=== PATIENT | female | born 1955 | race Two or more races ===

== ENCOUNTER 2025-08-04 15:38 | Emergency (ER) | payer OTHER ==
[~2025-08-04] VITALS: Ht 165.1 cm; Wt 89.1 kg
[2025-08-04 15:40] VITALS: BP 125/84; PULSE 125; RESP 18; TEMP 98.7; O2SAT 95
--- NOTE | 2025-08-04 16:24 | ED.PDOC ---
Christopher. trauma (HPI) HPI Comments This patient is a morbidly obese 70-year-old female who presents to the ED for c/c of fall injury Patient's dates last night p.m. 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, Allergies Allergies: Coded Allergies: NO KNOWN ALLERGIES (Unverified , 08/04/25) Information Source: Patient Mode of Arrival: Walker Brought in by: self Severity: Moderate Timing: Days Duration: Since onset Prehospital treatment: None Location: (R) Leg Location of laceration: None Mechanism: Blunt trauma, Fall Past Medical History PAST MEDICAL HISTORY: Unknown Past Medical History (Other): Patient ambulates with a walker Surgical History: Unknown 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 Family History Family History: Reviewed,noncontributory to illness Social History Smoker: Non-Smoker Alcohol: Denies ETOH Use Drugs: Denies Drug Use Lives In: Home Constitutional: denies: chills, diaphoresis, fatigue, fever, malaise, sweats, weakness, others EENTM: denies: blurred vision, double vision, ear bleeding, ear discharge, ear drainage, ear pain, ear ringing, eye pain, eye redness, hearing loss, mouth pain, mouth swelling, nasal discharge, nose bleeding, nose congestion, nose pain, photophobia, tearing, throat pain, throat swelling, voice changes, others Respiratory: denies: cough, hemoptysis, orthopnea, SOB at rest, shortness of breath, SOB with excertion, stridor, wheezing, others Cardiovascular: denies: chest pain, dizzy spells, diaphoresis, Dyspnea on exertion, edema, irregular heart beat, left arm pain, lightheadedness, palpitations, PND, syncope, others Gastrointestinal: denies: abdomen distended, abdominal pain, blood streaked bowels, constipated, diarrhea, dysphagia, difficulty swallowing, hematemesis, melena, nausea, poor appetite, poor fluid intake, rectal bleeding, rectal pain, vomiting, others Genitourinary: denies: abnormal vagina bleeding, burning, dyspareunia, dysuria, flank pain, frequency, hematuria, incontinence, pain, , vagina discharge, urgency, others Neurological: denies: dizziness, fainting, headache, left sided numbness, left sided weakness, numbness, paresthesia, pre-existing deficit, right sided numbness, right sided weakness, seizure, speech problems, tingling, tremors, weakness, others Musculoskeletal: reports: others (Soft tissue swelling of the proximal medial right thigh); denies: back pain, gout, joint pain, joint swelling, muscle pain, muscle stiffness, neck pain Integumetry: denies: bruises, change in color, change in hair/nails, dryness, laceration, lesions, lumps, rash, wounds, others Allergic/Immunocompromised: denies: Difficulty Healing, Frequent Infections, Hives, Itching, others Hematologic/Lymphatic: denies: anemia, blood clots, easy bleeding, easy bruising, swollen glands, others Endocrine: denies: excessive hunger, excessive sweating, excessive thirst, excessive urination, flushing, intolerance to cold, intolerance to heat, unexp lained weight gain, unexplained weight loss, others Psychiatric: denies: anxiety, bipolar disorder, depression, hopeless, panic disorder, schizophrenia, sleepless, suicidal, others All Other Systems: Reviewed and Negative Physical Exam General Appearance: Mild Distress (Moderate distress due to thigh concerns. Patient states she took pain medication at home.), Obese HEENT: Normal ENT Inspection, Pharynx Normal, TMs Normal Neck: Full Range of Motion, Non-Tender, Normal, Normal Inspection Respiratory: Chest Non-Tender, Lungs Clear, No Accessory Muscle Use, No Respiratory Distress, Normal Breath Sounds Cardiovascular: No Edema, No JVD, No Murmur, No Gallop, Normal Peripheral Pulses, Regular Rate/Rhythm Breast Exam: Deferred Gastrointestinal: No Organomegaly, Non Tender, No Pulsatile Mass, Normal Bowel Sounds, Soft Genitalia: Deferred Pelvic: Deferred Rectal: Deferred Extremities: Other (4 cm moderately firm mass appreciated in the right proximal medial thigh. Tender to palpation throughout. Mild local erythema. No ecchymosis.) Neurologic: Alert Cerebellar Function: NOT DONE Reflexes: NOT DONE Skin: Dry, Normal Color, Warm Lymphatic: No Adenopathy Was a procedure done? Was a procedure done?: No Differential Diagnosis Multiple Trauma: Other (Follow up, muscle strain, neoplasm, lipoma) X-Ray, Labs, Meds, VS Vital Signs Date Time Temp Pulse Resp B/P (MAP) Pulse Ox O2 Delivery O2 Flow Rate FiO2 08/04/25 15:40 98.7 125 18 125/84 95 98.7 [place] [address] Ph: [phone] DIAGNOSTIC IMAGING Diagnostic Imaging Report : [id number] Signed PATIENT: DEISI GUZMAN ACCT: [id number] UNIT: [id number] : 1955 LOC: ER ROOM / BED: / AGE / SEX: 70 / F ADM STATUS: REG ER SERVICE 1603 ORDERING PHYSICIAN: GEORGE REED PAC PROCEDURE(s): RLEXT - RIGHT LOWER EXTREMITY ULTRASOU REASON: Proximal right medial thigh mass ORDER NUMBER(s): [id number], ACCESSION NUMBER(s): [id number] RIGHT Upper Extremity Venous Duplex Clinical History: Proximal right medial thigh mass Comparison: None Technique: Doppler evaluation of the venous system of the right thigh as well as the adjacent soft tissues including color Doppler and spectral / pulsed wave form analysis. Findings: Superficial vein is seen at the area of concern demonstrating sluggish but patent flow. Probable minimally prominent lymph node within the subcutaneous soft tissues measuring up to 4.8 cm in dimension. No discrete mass. No surrounding inflammatory changes. Impression: A prominent vessel with sluggish but preserved flow is seen within the soft tissues of the area of concern There is also a mildly prominent lymph node without cortical thickening or other suspicious imaging features. ATED BY: TONIO FERGUSON MD DICTATED DATE/TIME: 08/04/251650 SIGNED BY: TONIO FERGUSON MD SIGNED DATE/TIME: 08/04/251650 CC: X-Ray, Labs, Meds, VS Comment All studies performed the ED were evaluated by me personally. Ultrasound on the proximal medial right thigh revealed a superficial vein that demonstrates sluggish but patent flow. Minimally prominent lymph node was noted in the areas well. No discrete mass. No surrounding inflammatory changes. Time of 1ST Reevaluation: 17:22 Reevaluation 1ST: Unchanged Consultation: PCP Patient Education/Counseling: Diagnosis, Treatment Family Education/Counseling: Diagnosis, Treatment, No Family Present Departure 1 Departure Time of Disposition: 17:22 Impression: Primary Impression: Swollen lymph nodes Disposition: HOME / SELF CARE / HOMELESS Condition: Stable Additional Instructions: Advised patient utilize antibiotics as directed until completion. If symptoms continue, patient will need to follow up with the primary care provider for re-evaluation. e-Prescriptions Sulfamethoxazole W/Trimethopri (Bactrim Ds Tablet) 1 Tab Tb 1 TAB PO BID for 5 Days, #10 TAB Prov: GEORGE REED PAC 08/04/25 Discharged With: Self, Friend Critical Care Note Critical Care Time?: No Stability Stability form required: No Heart Score Heart Score: Heart Score Response (Comments) Value History N/A 0 EKG N/A 0 Age N/A 0 Risk Factors N/A 0 Troponin N/A 0 Total 0 I personally scribed for GEORGE REED PAC ([email or web address]) on 08/04/25 at 16:24. Electronically submitted by Belem Rose ([email or web address]). I personally scribed for GEORGE REED PAC ([employer]) on 08/04/25 at 16:56. Electronically submitted by Belem Rose ([email or web address]). GEORGE REED PAC Aug 04, 2025 16:24
--- NOTE | 2025-08-04 16:53 | DVH ---
RIGHT Upper Extremity Venous Duplex Clinical History: Proximal right medial thigh mass Comparison: None Technique: Doppler evaluation of the venous system of the right thigh as well as the adjacent soft t issues including color Doppler and spectral / pulsed wave form analysis. Findings: Superficial vein is seen at the area of concern demonstrating sluggish but patent flow. Probable minimally prominent lymph node within the subcutaneous soft tissues measuring up to 4.8 cm i n dimension. No discrete mass. No surrounding inflammatory changes. Impression: A prominent vessel with sluggish but preserved flow is seen within the soft tissues of the area of co ncern There is also a mildly prominent lymph node without cortical thickening or other suspicious imaging f eatures.
[2025-08-04] MEDS ORDERED: BACDST PO (17:23)
== END 2025-08-04 18:31 | disposition home or self-care (01) ==
LOC: ER 15:42
DX: R59.9 Enlarged lymph nodes, unspecified (principal); M79.651 Pain in right thigh; W01.0XXA Fall on same level from slipping, tripping and stumbling without subsequent striking against object, initial encounter; Y93.89 Activity, other specified; Y92.89 Other specified places as the place of occurrence of the external cause; Y99.8 Other external cause status
CPT/HCPCS: 76881

== ENCOUNTER 2025-08-14 10:07 | Inpatient (IN) | payer OTHER ==
[~2025-08-14] VITALS: Ht 165.1 cm; Wt 105.2 kg
[2025-08-14 00:49] VITALS: PULSE 74; RESP 19; O2SAT 95
[~2025-08-14 10:07] MED LIST: BACDST PO
--- NOTE | 2025-08-14 10:51 | ED.PDOC ---
Musculoskeletal HPI Comments 70y F who presents to the ED for chief complaint of lower extremity pain. Pt states she has been having R leg pain since 08/04. Pt states she has been having pain with ambulating on the RLE , noting the pain / with ambulating and lessened while sitting. Pt states she came today due to pain increasing so much, she has been unable to walk and has been have frequent falls with no associated loss of consciousness. Pt states she had multiple falls on 08/04 and came to [facility] 2x days later and was evaluated. Pt states she was evaluated and had RLE Ultrasound on the proximal medial right thigh which revealed a superficial vein with sluggish but patent flow. Pt was otherwise given antibiotics and discha rged but states despite finishing her course of abx, she has continued to have pain and came to the ED for further evaluation. Pt otherwise in the ED denies chest pain, shortness of breath, dizziness, any other symptoms. Chief Complaint: Lower Extremity Time Seen by MD: 10:47 Reviewed Notes: Nurses Notes, Medications, Allergies Allergies: Coded Allergies: NO KNOWN ALLERGIES (Unverified , 08/04/25) Home Meds Active Scripts Sulfamethoxazole W/Trimethopri (Bactrim Ds Tablet) 1 Tab Tb, 1 TAB PO BID for 5 Days, #10 TAB Prov:GEORGE REED PAC 08/04/25 Information Source: Patient Mode of Arrival: Wheelchair Brought in by: self Location: Right Extremity Location: Leg Timing: Days, Weeks Prehospital treatment: None Severity: Moderate Able to Move Extremity: Yes Bear Weight: Limited Pain: Severe Mechanism: Spontaneous Circumstances: Fall Onset of Symptoms: Spontaneous Symptoms: Pain DVT Risk Factors: NONE Last Tetanus: Unknown Associated signs and symptoms: Leg pain Past Medical History PAST MEDICAL HISTORY: DM Surgical History: Denies all surgeries 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 Family History Family History: Reviewed,noncontributory to illness Social History Smoker: Cigarettes Alcohol: Denies ETOH Use Drugs: Denies Drug Use Lives In: Home Constitutional: denies: chills, diaphoresis, fatigue, fever, malaise, sweats, weakness, others EENTM: denies: blurred vision, double vision, ear bleeding, ear discharge, ear drainage, ear pain, ear ringing, eye pain, eye redness, hearing loss, mouth pain, mouth swelling, nasal discharge, nose bleeding, nose congestion, nose pain, photophobia, tearing, throat pain, throat swelling, voice changes, others Respiratory: denies: cough, hemoptysis, orthopnea, SOB at rest, shortness of breath, SOB with excertion, stridor, wheezing, others Cardiovascular: denies: chest pain, dizzy spells, diaphoresis, Dyspnea on exertion, edema, irregular heart beat, left arm pain, lightheadedness, palpitations, PND, syncope, others Gastrointestinal: denies: abdomen distended, abdominal pain, blood streaked bowels, constipated, diarrhea, dysphagia, difficulty swallowing, hematemesis, melena, nausea, poor appetite, poor fluid intake, rectal bleeding, rectal pain, vomiting, others Genitourinary: denies: abnormal vagina bleeding, burning, dyspareunia, dysuria, flank pain, frequency, hematuria, incontinence, pain, , vagina discharge, urgency, others Neurological: denies: dizziness, fainting, headache, left sided numbness, left sided weakness, numbness, paresthesia, pre-existing deficit, right sided numbness, right sided weakness, seizure, speech problems, tingling, tremors, weakness, others Musculoskeletal: reports: joint pain; denies: back pain, gout, joint swelling, muscle pain, muscle stiffness, neck pain, others Integumetry: denies: bruises, change in color, change in hair/nails, dryness, laceration, lesions, lumps, rash, wounds, others Allergic/Immunocompromised: denies: Difficulty Healing, Frequent Infections, Hives, Itching, others Hematologic/Lymphatic: denies: anemia, blood clots, easy bleeding, easy bruising, swollen glands, others Endocrine: denies: excessive hunger, excessive sweating, excessive thirst, excessive urination, flushing, intolerance to cold, intolerance to heat, unexplained weight gain, unexplained weight loss, others Psychiatric: denies: anxiety, bipolar disorder, depression, hopeless, panic disorder, schizophrenia, sleepless, suicidal, others All Other Systems: Reviewed and Negative Physical Exam General Appearance: Mild Distress HEENT: Normal ENT Inspection, Pharynx Normal, TMs Normal Neck: Full Range of Motion, Non-Tender, Normal, Normal Inspection Respiratory: Chest Non-Tender, Lungs Clear, No Accessory Muscle Use, No Respiratory Distress, Normal Breath Sounds Cardiovascular: No Edema, No JVD, No Murmur, No Gallop, Normal Peripheral Pulse s, Regular Rate/Rhythm Breast Exam: Deferred Gastrointestinal: No Organomegaly, Non Tender, No Pulsatile Mass, Normal Bowel Sounds, Soft Genitalia: Deferred Pelvic: Deferred Rectal: Deferred Extremities: No calf tenderness, Normal capillary refill, No pedal edema Musculoskeletal : Location: Right Extremity Location: Leg Apperance: Limited ROM, Tenderness: Mild Neurologic: Alert, toolmaker II-XII nml as Tested, No Motor Deficits, Normal Affect, Normal Mood, No Sensory Deficits Cerebellar Function: Normal Reflexes: Normal Skin: Dry, Normal Color, Warm Lymphatic: No Adenopathy Was a procedure done? Was a procedure done?: No Differential Diagnosis EXT Differential Diagnosis: Cellulitis, Deep Vein Thrombosis, DJD, Contusion, Strain, Rheumatoid, Arthritis X-Ray, Labs, Meds, VS Vital Signs Date Time Temp Pulse Resp B/P (MAP) Pulse Ox O2 Delivery O2 Flow Rate FiO2 08/14/25 12:10 107 18 111/75 (87) 97 08/14/25 10:09 97.9 102 18 164/78 98 97.9 Lab Test 08/14/25 10:50 Range/Units White Blood Count 20.1 H 4.4-10.8 10^3/uL Red Blood Count 4.73 4.0-5.20 10^6/uL Hemoglobin 14.2 12.2-16.2 g/dL Hematocrit 42.2 36.0-46.0 % Mean Corpuscular Volume 89.3 80.0-100.0 fL Mean Corpuscular Hemoglobin 29.9 28.0-32.0 pg Mean Corpuscular Hemoglobin Concent 33.5 32.0-36.0 g/dL Red Cell Distribution Width 13.4 11.8-14.3 % Platelet Count 281 140-450 10^3/uL Mean Platelet Volume 8.3 6.9-10.8 fL Neutrophils (%) (Auto) 90.6 H 37.0-80.0 % Lymphocytes (%) (Auto) 5.0 L 10.0-50.0 % Monocytes (%) (Auto) 3.9 0.0-12.0 % Eosinophils (%) (Auto) 0.1 0.0-7.0 % Basophils (%) (Auto) 0.4 0.0-2.0 % Neutrophils # (Auto) 18.2 H 1.6-8.6 10 ^3/uL Lymphocytes # (Auto) 1.0 0.4-5.4 10 ^3/uL Monocytes # (Auto) 0.8 0-1.3 10 ^3/uL Eosinophils # (Auto) 0 0-0.8 10 ^3/uL Basophils # (Auto) 0.1 0-0.2 10 ^3/uL Nucleated Red Blood Cells 0.0 % Erythrocyte Sedimentation Rate 83 H 0-20 mm/hr Sodium Level 135 L 136-145 mmol/L Potassium Level 3.7 3.5-5.1 mmol/L Chloride Level 103 98-107 mmol/L Carbon Dioxide Level 22 20-31 mmol/L Anion Gap 10 5-15 Blood Urea Nitrogen 17 9-23 mg/dL Creatinine 0.95 0.550-1.02 mg/dL Glomerular Filtration Rate Calc 65 >90 mL/min BUN/Creatinine Ratio 17.9 10.0-20.0 Serum Glucose 438 *H 74-106 mg/dL Calcium Level 9.5 8.7-10.4 mg/dL Total Bilirubin 0.2 0.2-1.0 mg/dL Aspartate Amino Transferase (AST) 12 L 13-40 U/L Alanine Aminotransferase (ALT) 21 7-40 U/L Alkaline Phosphatase 143 H 46-116 U/L Total Protein 6.9 5.7-8.2 g/dL Albumin 3.8 3.2-4.8 g/dL Current Medications Medications (Trade) Dose Ordered Sig/David Route Start Time Stop Time Status Last Admin Tramadol HCl (Ultram) 50 mg ONCE ONCE PO 08/14/25 10:45 08/14/25 10:46 DC 08/14/25 12:15 PROCEDURE(s): RLDVT - RT Lower DVT Impression: No right femoropopliteal venous thrombosis. The patient was given tramadol 50 mg for the pain The patient's CBC shows an elevated white blood cell count of 20.1 The patient is hyperglycemic at 438 An IV Hep-Lock is established The patient is being admitted Images Reviewed?: Images reviewed and evaluated by me Time of 1ST Reevaluation: 11:20 Reevaluation 1ST: Unchanged Patient Education/Counseling: Diagnosis, Treatment, Prognosis Family Education/Counseling: No Family Present Departure 1 Departure Time of Disposition: 15:54 Impression: Primary Impression: Right leg pain Additional Impressions: Lymphadenopathy Leukocytosis Qualified Codes: D72.829 - Elevated white blood cell count, unspecified Disposition: 09 ADMITTED INPATIENT Admit to: Med Surg Condition: Fair Critical Care Note Critical Care Time?: No Stability Stability form required: Yes Unstable for transfer: ED Physician Assesment (Clinical assesment) Heart Score Heart Score: Heart Score Response (Comments) Value History N/A 0 EKG N/A 0 Age N/A 0 Risk Factors N/A 0 Troponin N/A 0 Total 0 I personally scribed for JERMAINE BARRAGAN MD ([email or web address]) on 08/14/25 at 10:51. Electronically submitted by Belem Rose ([email or web address]). I personally scribed for JERMAINE BARRAGAN MD ([email or web address]) on 08/14/25 at 12:17. Electronically submitted by Belem Rose ([email or web address]). JERMAINE BARRAGAN MD Aug 14, 2025 10:51
[2025-08-14 11:19] LABS: Hematocrit 42.2 % (36.0-46.0); Hemoglobin 14.2 g/dL (12.2-16.2); Mean Corpuscular Hemoglobin 29.9 pg (28.0-32.0); Mean Corpuscular Volume 89.3 fL (80.0-100.0); Nucleated Red Blood Cells % 0.0 %
--- NOTE | 2025-08-14 11:58 | DVH ---
Right lower extremity venous duplex Clinical History: pain Comparison: US RIGHT LOWER EXTREMITY ULTRASOU on DOS: 08/04/25 Technique: Duplex Doppler evaluation of the deep venous system of the right lower extremity from the common femo ral vein to the popliteal vein including color Doppler and spectral/pulsed waveform analysis was perf ormed. Findings: The common femoral vein demonstrates appropriate compressibility and waveform variability. There is compressibility/patency of the great saphenous vein at the proximal thigh. The femoral vein demonstrates appropriate compressibility and waveform variability. The deep femoral vein demonstrates appropriate compressibility and waveform variability. The popliteal vein demonstrates appropriate compressibility and waveform variability. There is normal compressibility at the tibioperoneal trunk. Impression: No right femoropopliteal venous thrombosis.
[2025-08-14 14:18] LABS: Alanine Aminotransferase 21 U/L (7-40); Albumin 3.8 g/dL (3.2-4.8); Anion Gap 10 (5-15); BUN/Creatinine Ratio 17.9 (10.0-20.0); Blood Urea Nitrogen 17 mg/dL (9-23); Calcium 9.5 mg/dL (8.7-10.4); Carbon Dioxide 22 mmol/L (20-31); Chloride 103 mmol/L (98-107); Potassium 3.7 mmol/L (3.5-5.1); Total Protein 6.9 g/dL (5.7-8.2)
[2025-08-14 14:19] LABS: Alkaline Phosphatase 143 U/L (46-116); Bilirubin, Total 0.2 mg/dL (0.2-1.0); Sodium 135 mmol/L (136-145)
[2025-08-14 14:20] LABS: Glucose 438 mg/dL (74-106)
[2025-08-14] MEDS: SODIUM CHLORIDE 0.9% 1,000 ML IV SCH (16:15)
[2025-08-14] MEDS ORDERED: NITROGLYCERIN 0.4 MG SL TAB SL PRN (16:15)
[2025-08-14] MEDS ORDERED: MORPHINE SULFATE INJ 2 MG/ml SYRG IV PRN ×2 (16:15)
--- NOTE | 2025-08-14 16:47 | DVHINCON2 ---
Date of service: Aug 14, [address] Metz Reason for Consultation right leg cellulitis History of Present Illness Patient is admitted ( orders are in) however waiting for bed. She is currently seated in Lobby on wheel chair. Patient is a 70-year-old female with a past medical history of Diabetes Mellitus presents to the hospital with a chief complaint of right lower extremity pain. Patient states she has been having Right inner thigh pain since 08/04. While ambulating on the RLE , noting the pain 07/12 and lessened while sitting. She came to the hospital due to increase in pain. Patient has been have frequent falls with no associated loss of consciousness. Pt states she had multiple falls on 08/04 and came to [facility] 2x days later and was evaluated. Pt states she was evaluated and had RLE Ultrasound on the proximal medial right thigh which revealed a superficial vein with sluggish but patent flow. She was in Lobby, unable to examine the thigh. I asked if she could walk it, she report no because of pain. I asked if you have infection of skin of thigh.. she said not sure. denies acute redness or tenderness but reports pain from hip to knee area. denies fever Past Medical History Past Medical History Cardiac: No pertinent Hx Pulmonary: No pertinent Hx Central Nervous System: No pertinent Hx GI: No pertinent Hx Hemotology/Oncology: No pertinent Hx Hepatobiliary: No pertinent Hx Psychiatric: No pertinent Hx Musculoskeletal: No pertinent Hx Rheumotologic: No pertinent Hx Infectious Disease: No peritnent Hx ENT: No pertinent Hx Renal/: No pertinent Hx Endocrine: NIDDM Dermatology: No pertinent Hx Social History Smoker: No Hx (Negative) Alocohol: None Drugs: None Lives with: With family Domestic Violence: Neg Allergies: Coded Allergies: NO KNOWN ALLERGIES (Unverified , 08/04/25) Home Meds Active Scripts Sulfamethoxazole W/Trimethopri (Bactrim Ds Tablet) 1 Tab Tb, 1 TAB PO BID for 5 Days, #10 TAB Prov:GEORGE REED PAC 08/04/25 Current Medications Current Medications Medications (Trade) Dose Ordered Sig/David Route PRN Reason Start Time Stop Time Status Last Admin Sodium Chloride 1,000 ml @ 120 mls/hr Q8H20M IV 08/14/25 16:15 Acetaminophen/ Hydrocodone Bitart ([place] 5/325MG Tab) 1 tab Q4HP PRN PO MODERATE PAIN (4-6 PAIN SCALE) 08/14/25 16:15 Ondansetron HCl (Zofran) 4 mg Q4HP PRN IV NAUSEA / VOMITING 08/14/25 16:15 Docusate Sodium (Colace Capsule) 100 mg BIDPRN PRN PO FOR CONSTIPATION 08/14/25 16:15 Enoxaparin Sodium (Lovenox) 40 mg DAILY SC 08/15/25 10:00 Acetaminophen (Tylenol Tablet) 650 mg Q6HP PRN PO PAIN SCALE 1-3 OR TEMP>100.4 08/14/25 16:15 Morphine Sulfate 2 mg Q4HPRN PRN IV SEVERE PAIN (7-10 PAIN SCALE) 08/14/25 16:15 Nitroglycerin (Ntrostat Sublingual) 0.4 mg Q5MINP PRN SL FOR CHEST PAIN 08/14/25 16:15 Morphine Sulfate 2 mg Q30M PRN IV FOR CHEST PAIN 08/14/25 16:15 Ceftriaxone Sodium/Dextrose 50 ml @ 50 mls/hr DAILY IV 08/14/25 16:15 Review of Systems Constitutional: No symptom reported Ears, Nose, & Throat: No symptom reported Eyes: No symptom reported Pulmonary/Respiratory: No symptom reported Cardiovascular: No symptom reported Gastrointestinal: No symptom reported Genitourinary: No symptom reported Musculoskeletal: Leg pain (riht leg /inner thigh pain) Psychiatric: No symptom reported Endocrine: No symptom reported Hemotologic/Lymphatic: No symptom reported Vital Signs Vital Signs Date Time Temp Pulse Resp B/P (MAP) Pulse Ox O2 Delivery O2 Flow Rate FiO2 08/14/25 12:10 107 18 111/75 (87) 97 08/14/25 10:09 97.9 97.9 Physical Exam General Appeara: Well developed, Well nourished, Normal Appearance Head Exam: Normal inspection Neck Exam: Normal inspection, Non-tender, Normal alignment Eye Exam: bilateral eye Normal inspection, bilateral eye PERRL, bilateral eye EOMI Mouth: Normal Inspection Pulmonary/Respiratory: Normal inspection, Normal breath sounds, Lungs clear Cardiovascular/Chest: Normal inspection, Regular rate, Normal Rhythm Abdominal Exam: Normal bowel sounds, Soft Legs: unable to examine 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3 6.9-10.8 fL Neutrophils (%) (Auto) 90.6 H 37.0-80.0 % Lymphocytes (%) (Auto) 5.0 L 10.0-50.0 % Monocytes (%) (Auto) 3.9 0.0-12.0 % Eosinophils (%) (Auto) 0.1 0.0-7.0 % Basophils (%) (Auto) 0.4 0.0-2.0 % Neutrophils # (Auto) 18.2 H 1.6-8.6 10 ^3/uL Lymphocytes # (Auto) 1.0 0.4-5.4 10 ^3/uL Monocytes # (Auto) 0.8 0-1.3 10 ^3/uL Eosinophils # (Auto) 0 0-0.8 10 ^3/uL Basophils # (Auto) 0.1 0-0.2 10 ^3/uL Nucleated Red Blood Cells 0.0 % Erythrocyte Sedimentation Rate 83 H 0-20 mm/hr Sodium Level 135 L 136-145 mmol/L Potassium Level 3.7 3.5-5.1 mmol/L Chloride Level 103 98-107 mmol/L Carbon Dioxide Level 22 20-31 mmol/L Anion Gap 10 5-15 Blood Urea Nitrogen 17 9-23 mg/dL Creatinine 0.95 0.550-1.02 mg/dL Glomerular Filtration Rate Calc 65 >90 mL/min BUN/Creatinine Ratio 17.9 10.0-20.0 Serum Glucose 438 *H 74-106 mg/dL Calcium Level 9.5 8.7-10.4 mg/dL Total Bilirubin 0.2 0.2-1.0 mg/dL Aspartate Amino Transferase (AST) 12 L 13-40 U/L Alanine Aminotransferase (ALT) 21 7-40 U/L Alkaline Phosphatase 143 H 46-116 U/L Total Protein 6.9 5.7-8.2 g/dL Albumin 3.8 3.2-4.8 g/dL Assessment A 70 yo female with SIRS right thigh pain of unclear etiology Right thigh cellulitis/ skin or soft tissue infection elevated WBC Obesity recommendations STart empirically IV VAncomycin per pharmacy and IV cefriaxone 2g daily recommend CT of right thigh with hip/ knee (unable to examine properly) repeat CBC tomorrow blood cultures US doppler rules out DVT pain control prognosis gaurded plan discussed with patient, Dr Metz Total time 80 minutes spent during the encounter Plan discussed with: Patient, Other ZACHARIAH OLSON MD Aug 14, 2025 16:47
[2025-08-14] MEDS: KETOROLAC TROMETH 30 MG/ML 1ML VIAL IV ONE (22:39)
[2025-08-14] MEDS ORDERED: DEXTROSE (50%) 50ML SYRG IV PRN (23:00)
[2025-08-15] VITALS (9 sets, daily range): BP systolic 113–153; BP diastolic 41–80; PULSE 90–104; RESP 17–20; TEMP 97.4–98.8; O2SAT 94–100
[2025-08-15] MEDS: InsuLIN REG 1unit/0.01ml Soln (100units/ml) IV ONE (00:28)
--- NOTE | 2025-08-15 01:08 | DVHHP2 ---
Admitting Diagnosis: Right Lower Extremity Cellulitis History of Present Illness History Source: Patient Exam Limitations: No limitations HPI Mrs. Denia Pena 70 yo female with a history of DM presents with a chief complaint of right lower extremity pain. Pt states she has been having R inner thigh pain since 08/04. Pt states she has been having pain with ambulating on the RLE , noting the pain 9/10 with ambulating and lessened while sitting. Pt states she came to the hospital due to pain increasing so much, she has been unable to walk and has been have frequent falls with no associated loss of consciousness. Pt states she had multiple falls on 08/04 and came to [facility] 2x days later and was evaluated. Pt states she was evaluated and had RLE Ultrasound on the proximal medial right thigh which revealed a superficial vein with sluggish but patent flow. Patient has been on oral antibiotics with no improvement of right inner thigh pain and swelling with noted erythema. Patient denies fevers, chills, nausea, vomiting. Patient admitted for further evaluation and treatment. Home Meds Active Scripts Sulfamethoxazole W/Trimethopri (Bactrim Ds Tablet) 1 Tab Tb, 1 TAB PO BID for 5 Days, #10 TAB Prov:DEREKGEORGE PAC 08/04/25 Past Medical History Cardiac: No pertinent Hx Pulmonary: No pertinent Hx Central Nervous System: No pertinent Hx GI: No pertinent Hx Hemotology/Oncology: No pertinent Hx Hepatobiliary: No pertinent Hx Psychiatric: No pertinent Hx Musculoskeletal: No pertinent Hx Rheumotologic: No pertinent Hx Infectious Disease: No peritnent Hx ENT: No pertinent Hx Renal/: No pertinent Hx Endocrine: NIDDM Dermatology: No pertinent Hx Smoker: No Hx (Negative) Alocohol: None Drugs: None Lives with: With family Domestic Violence: Neg Review of Systems Constitutional: No symptom reported Ears, Nose, & Throat: No symptom reported Eyes: No symptom reported Pulmonary/Respiratory: No symptom reported Cardiovascular: No symptom reported Gastrointestinal: No symptom reported Genitourinary: No symptom reported Musculoskeletal: Leg pain (riht leg /inner thigh pain) Skin: No symptom reported Psychiatric: No symptom reported Endocrine: No symptom reported Hemotologic/Lymphatic: No symptom reported H&P Exam Vital Signs Vital Signs Date Time Temp Pulse Resp B/P (MAP) Pulse Ox O2 Delivery O2 Flow Rate FiO2 10/13/25 22:32 98.0 106 18 134/82 (99) 95 98.0 08/14/25 22:32 Room Air General Appeara: Well developed, Well nourished, Normal Appearance Head Exam: Normal inspection Neck Exam: Normal inspection, Non-tender, Normal alignment Eye Exam: bilateral eye Normal inspection, bilateral eye PERRL, bilateral eye EOMI Ear Exam: bilateral ear Auricle normal Nasal Exam: Normal inspection Mouth: Normal Inspection Pulmonary/Respiratory: Normal inspection, Normal breath sounds, Chest non- tender, Lungs clear Cardiovascular/Chest: Normal inspection, Regular rate, Normal Rhythm Peripheral Pulses: 2+ dorsalis pedis (R), 2+ dorsalis pedis (L), 2+ Radial (R), 2+ Radial (L) Abdominal Exam: Normal bowel sounds, Soft Legs: right leg soft tissue tenderness (right inner thigh), right leg swelling (right inner thigh) Tendon/ Neuro: Normal sensation, Normal motor function TOWN CLERK Exam: Normal hearing, Normal speech, PERRL Neuro/Mental St: Alert, Oriented Appearance: Appropriate appearance, Appropriate insight Eye contact/ Speech: Cooperative, Good eye contact, Normal speech Thoughts/Psych: Normal thought pattern Skin Exam: Normal inspection, Normal color, Warm/dry SEPSIS Sepsis Screen Date sepsis recognized/suspect: Aug 14, 2025 Time Sepsis recognized/suspect: 2234 Recent Procedure: No On Antibiotic Therapy: No Respiratory Rate >20: No Heart Rate >90: Yes Temp<36 C (96.8 F) or >38.3 C: No SBP <90 or MAP <65 mmHG: No New Acute Mental Status Change: No Is the patient on CPAP, BIPAP,: No Physician Orders Glucose Blood (Accu-Chek Comfort Curve T (08/15/25 07:00) Insulin R (Human) (Insulin R) (08/15/25 07:00) Dextrose 50% Syringe (08/14/25 23:00) Vital Signs Date Time Temp Pulse Resp B/P (MAP) Pulse Ox O2 Delivery O2 Flow Rate FiO2 08/14/25 22:32 98.0 106 18 134/82 (99) 95 98.0 08/14/25 22:32 106 18 95 Room Air 08/14/25 18:36 98 16 123/54 (77) 95 Medications Medications Dose Ordered Sig/David Route Start Time Stop Time Status Last Admin Dose Admin Ceftriaxone Sodium/Dextrose 50 ml @ 50 mls/hr DAILY IV 08/14/25 16:15 08/14/25 16:15 50 MLS/HR Insulin Human Regular 10 units ONCE ONCE IV 08/15/25 00:00 08/15/25 00:01 DC 08/15/25 00:28 10 UNITS Ketorolac Tromethamine 15 mg ONCE ONCE IV 08/14/25 21:45 08/14/25 21:54 DC 08/14/25 22:39 15 MG Labs/Xrays Labs Test 08/14/25 22:51 08/14/25 10:50 Range/Units POC Glucose 473 *H 70-106 mg/dl White Blood Count 20.1 H 4.4-10.8 10^3/uL Red Blood Count 4.73 4.0-5.20 10^6/uL Hemoglobin 14.2 12.2-16.2 g/dL Hematocrit 42.2 36.0-46.0 % Mean Corpuscular Volume 89.3 80.0-100.0 fL Mean Corpuscular Hemoglobin 29.9 28.0-32.0 pg Mean Corpuscular Hemoglobin Concent 33.5 32.0-36.0 g/dL Red Cell Distribution Width 13.4 11.8-14.3 % Platelet Count 281 140-450 10^3/uL Mean Platelet Volume 8.3 6.9-10.8 fL Neutrophils (%) (Auto) 90.6 H 37.0-80.0 % Lymphocytes (%) (Auto) 5.0 L 10.0-50.0 % Monocytes (%) (Auto) 3.9 0.0-12.0 % Eosinophils (%) (Auto) 0.1 0.0-7.0 % Basophils (%) (Auto) 0.4 0.0-2.0 % Neutrophils # (Auto) 18.2 H 1.6-8.6 10 ^3/uL Lymphocytes # (Auto) 1.0 0.4-5.4 10 ^3/uL Monocytes # (Auto) 0.8 0-1.3 10 ^3/uL Eosinophils # (Auto) 0 0-0.8 10 ^3/uL Basophils # (Auto) 0.1 0-0.2 10 ^3/uL Nucleated Red Blood Cells 0.0 % Erythrocyte Sedimentation Rate 83 H 0-20 mm/hr Sodium Level 135 L 136-145 mmol/L Potassium Level 3.7 3.5-5.1 mmol/L Chloride Level 103 98-107 mmol/L Carbon Dioxide Level 22 20-31 mmol/L Anion Gap 10 5-15 Blood Urea Nitrogen 17 9-23 mg/dL Creatinine 0.95 0.550-1.02 mg/dL Glomerular Filtration Rate Calc 65 >90 mL/min BUN/Creatinine Ratio 17.9 10.0-20.0 Serum Glucose 438 *H 74-106 mg/dL Calcium Level 9.5 8.7-10.4 mg/dL Total Bilirubin 0.2 0.2-1.0 mg/dL Aspartate Amino Transferase (AST) 12 L 13-40 U/L Alanine Aminotransferase (ALT) 21 7-40 U/L Alkaline Phosphatase 143 H 46-116 U/L Total Protein 6.9 5.7-8.2 g/dL Albumin 3.8 3.2-4.8 g/dL Assessment/Plan Problem List: (1) Cellulitis of right thigh (2) Right leg pain (3) Leukocytosis Plan This is a 70 yo female with known history of DM who presents with a chief complaint of right inner thigh pain, swelling, redness on oral antibiotics with no improvement. Patient found to have 1. Right leg/inner thigh cellulitis 2. DM type 2 with Hyperglycemia Plan Admit Med Surgical Infectious Disease Consultation IV antibiotics CT right lower extremity DVT ppx Analgesics as needed Discussed all above with patient and patient daughter, both verbalized agreement and understanding of care plan. All questions were answered. Discussed care plan with supervising/admitting MD. Plan discussed with: Patient, Other Code Visit Code Visit Total Time (mins): 45 JASEN VERNON Aug 15, 2025 01:08 CEDRIC LUCIO MD Aug 15, 2025 18:21
[2025-08-15] MEDS ORDERED: DEXTROSE (50%) 50ML SYRG IV PRN (05:15)
[2025-08-15] MEDS: InsuLIN REG 1unit/0.01ml Soln (100units/ml) SC SCH ×2 (05:25→05:31)
[2025-08-15] MEDS: ACCU-CHEK COMFORT CURVE STRIP VI SCH ×2 (05:31→05:32)
[2025-08-15 06:41] LABS: Hematocrit 37.4 % (36.0-46.0); Hemoglobin 12.8 g/dL (12.2-16.2); Mean Corpuscular Hemoglobin 30.3 pg (28.0-32.0); Mean Corpuscular Volume 88.6 fL (80.0-100.0); Nucleated Red Blood Cells % 0.0 %
[2025-08-15 07:04] LABS: Alanine Aminotransferase 18 U/L (7-40); Albumin 3.4 g/dL (3.2-4.8); Anion Gap 12 (5-15); BUN/Creatinine Ratio 20.8 (10.0-20.0); Blood Urea Nitrogen 21 mg/dL (9-23); Calcium 9.3 mg/dL (8.7-10.4); Carbon Dioxide 20 mmol/L (20-31); Chloride 100 mmol/L (98-107); Potassium 3.8 mmol/L (3.5-5.1); Total Protein 6.2 g/dL (5.7-8.2)
[2025-08-15 07:05] LABS: Alkaline Phosphatase 142 U/L (46-116); Bilirubin, Total 0.2 mg/dL (0.2-1.0); Glucose 391 mg/dL (74-106); Sodium 132 mmol/L (136-145)
[2025-08-15] MEDS: ENOXAPARIN SOD 40 MG/0.4 ML SYRINGE SC SCH (12:00)
[2025-08-15] MEDS: HYDROcodone-ACET 5/325MG TAB PO PRN (12:00)
--- NOTE | 2025-08-15 12:31 | DVHPN2 ---
Progress Note - Dictate Date Seen: Aug 15, 2025 Medical Necessity Reason Pt with a Central, PICC or Fol: No Subjective no fever thigh pain pending CT vital signs Vital Sign Date Time Temp Pulse Resp B/P (MAP) Pulse Ox O2 Delivery O2 Flow Rate FiO2 08/15/25 09:00 98.8 100 20 119/71 (87) 97 98.8 08/14/25 22:32 Room Air Total Intake and Output 08/15/25 08/15/25 08/15/25 02:30 10:30 18:30 Intake Total 50 ml 450 ml Balance 50 ml 450 ml medications Current Medications Medications Dose Ordered Sig/David Route Start Time Stop Time Status Last Admin Dose Admin Sodium Chloride 1,000 ml @ 120 mls/hr Q8H20M IV 08/14/25 16:15 08/15/25 12:01 120 MLS/HR Acetaminophen/ Hydrocodone Bitart 1 tab Q4HP PRN PO 08/14/25 16:15 08/15/25 12:00 1 TAB Ondansetron HCl 4 mg Q4HP PRN IV 08/14/25 16:15 Docusate Sodium 100 mg BIDPRN PRN PO 08/14/25 16:15 Enoxaparin Sodium 40 mg DAILY SC 08/15/25 10:00 08/15/25 12:00 40 MG Acetaminophen 650 mg Q6HP PRN PO 08/14/25 16:15 Morphine Sulfate 2 mg Q4HPRN PRN IV 08/14/25 16:15 Nitroglycerin 0.4 mg Q5MINP PRN SL 08/14/25 16:15 Morphine Sulfate 2 mg Q30M PRN IV 08/14/25 16:15 Ceftriaxone Sodium/Dextrose 50 ml @ 50 mls/hr DAILY IV 08/14/25 16:15 08/15/25 12:01 50 MLS/HR Dextrose 50 ml UD PRN IV 08/14/25 23:00 Diagnostic Test (Pha) 1 strip Q6HR 08/15/25 06:00 08/15/25 12:07 1 STRIP Insulin Human Regular Q6HR SC 08/15/25 06:00 08/15/25 12:05 15 UNITS Dextrose 50 ml UD PRN IV 08/15/25 05:15 objective General Appeara: Well developed, Well nourished, Normal Appearance Head Exam: Normal inspection Neck Exam: Normal inspection, Non-tender, Normal alignment Eye Exam: bilateral eye Normal inspection, bilateral eye PERRL, bilateral eye EOMI Mouth: Normal Inspection Pulmonary/Respiratory: Normal inspection, Normal breath sounds, Lungs clear Cardiovascular/Chest: Normal inspection, Regular rate, Normal Rhythm Abdominal Exam: Normal bowel sounds, Soft Legs: right thigh tenderness 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 Exam: grossly intact Neuro/Mental St: Alert, Oriented Eye contact/ Speech: Cooperative, Good eye contact, Normal speech Thoughts/Psych: Normal thought pattern laboratory and microbiology Laboratory Tests 08/15/25 06:18 Test 08/15/25 06:18 Range/Units Serum Glucose 391 H 74-106 mg/dL Assessment/Plan A 70 yo female with SIRS right thigh pain of unclear etiology Right thigh cellulitis/ skin or soft tissue infection elevated WBC uncontrolled diabetes Hba1c 14 high ESR Obesity recommendations started IV VAncomycin per pharmacy ( ordered) continue IV cefriaxone 2g daily recommend CT of right thigh with hip/ knee with contrast ( urgent) ( changed order to with contrast) (unable to examine properly) repeat CBC tomorrow; still elevated blood culture ordered US doppler rules out DVT pain control prognosis gaurded plan discussed with Dr Metz Total time 50 minutes spent during the encounter Plan discussed with: ZACHARIAH Baker MD Aug 15, 2025 12:31
[2025-08-15] MEDS: DOCUSATE SOD 100 MG CAP PO PRN (21:05)
[2025-08-15] MEDS: INSULIN LANTUS (GLARGINE) 1 /0.01ml (100units/ml) SC SCH (21:20)
[2025-08-15] MEDS ORDERED: VANCOMYCIN PER PHARMACY 0 MG IV SCH (22:30)
[2025-08-16] VITALS (7 sets, daily range): BP systolic 107–188; BP diastolic 41–109; PULSE 89–106; RESP 16–20; TEMP 97.9–99.5; O2SAT 91–97
[2025-08-16] MEDS: VANCOMYCIN 1.75GM/350ML IV ONE (01:50)
--- NOTE | 2025-08-16 10:24 | DVHPN2 ---
Progress Note - Dictate Date Seen: Aug 16, 2025 Medical Necessity Reason Pt with a Central, PICC or Fol: No Subjective no fever thigh pain, WBC was up - 22.0 k vital signs Vital Sign Date Time Temp Pulse Resp B/P (MAP) Pulse Ox O2 Delivery O2 Flow Rate FiO2 08/16/25 04:53 97.9 101 18 107/41 (63) 96 97.9 08/15/25 20:00 Room Air* 0 21 Total Intake and Output 08/15/25 08/15/25 08/16/25 15:00 23:00 07:00 Intake Total 500 ml 840 ml Balance 500 ml 840 ml medications Current Medications Medications Dose Ordered Sig/David Route Start Time Stop Time Status Last Admin Dose Admin Sodium Chloride 1,000 ml @ 120 mls/hr Q8H20M IV 08/14/25 16:15 08/16/25 01:18 120 MLS/HR Acetaminophen/ Hydrocodone Bitart 1 tab Q4HP PRN PO 08/14/25 16:15 08/16/25 04:31 1 TAB Ondansetron HCl 4 mg Q4HP PRN IV 08/14/25 16:15 Docusate Sodium 100 mg BIDPRN PRN PO 08/14/25 16:15 08/15/25 21:05 100 MG Enoxaparin Sodium 40 mg DAILY SC 08/15/25 10:00 08/15/25 12:00 40 MG Acetaminophen 650 mg Q6HP PRN PO 08/14/25 16:15 Morphine Sulfate 2 mg Q4HPRN PRN IV 08/14/25 16:15 Nitroglycerin 0.4 mg Q5MINP PRN SL 08/14/25 16:15 Morphine Sulfate 2 mg Q30M PRN IV 08/14/25 16:15 Ceftriaxone Sodium/Dextrose 50 ml @ 50 mls/hr DAILY IV 08/14/25 16:15 08/15/25 12:01 50 MLS/HR Diagnostic Test (Pha) 1 strip Q6HR 08/15/25 06:00 08/16/25 06:01 1 STRIP Insulin Human Regular Q6HR SC 08/15/25 06:00 08/16/25 06:01 12 UNITS Dextrose 50 ml UD PRN IV 08/15/25 05:15 Insulin Glargine 20 units HS SC 08/15/25 22:00 08/15/25 21:20 20 UNITS Vancomycin HCl 0 ml @ 0 mls/hr UD IV 08/15/25 22:30 objective General Appeara: Well developed, Well nourished, Normal Appearance Head Exam: Normal inspection Neck Exam: Normal inspection, Non-tender, Normal alignment Eye Exam: bilateral eye Normal inspection, bilateral eye PERRL, bilateral eye EOMI Mouth: Normal Inspection Pulmonary/Respiratory: Normal inspection, Normal breath sounds, Lungs clear Cardiovascular/Chest: Normal inspection, Regular rate, Normal Rhythm Abdominal Exam: Normal bowel sounds, Soft Legs: right thigh tenderness 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 Exam: grossly intact Neuro/Mental St: Alert, Oriented Eye contact/ Speech: Cooperative, Good eye contact, Normal speech Thoughts/Psych: Normal thought pattern laboratory and microbiology Laboratory Tests 08/15/25 06:18 Test 08/15/25 06:18 Range/Units Serum Glucose 391 H 74-106 mg/dL Assessment/Plan A 70 yo female with SIRS right thigh abscess right thigh pain elevated WBC -22.0K uncontrolled diabetes Hba1c 14 peripheral artery disease high ESR Obesity smoker recommendations ortho consult placed to evaluate thigh collection my suspicion is that its likely an abscess with high wbc count and esr continue IV Vancomycin per pharmacy continue IV cefriaxone 2g daily reviewed CT of right thigh with hip/ knee with contrast showed collection of 10 cm in thigh area. repeat CBC tomorrow; still elevated repeat labs cardiology consulted, leg pain partially could be due to claudication?? cT shows evidence of PAD Doppler arterial ordered by primary blood culture ordered US doppler rules out DVT pain control prognosis gaurded plan discussed with Dr Metz Total time 50 minutes spent during the encounter Plan discussed with: Patient, Other ZACHARIAH OLSON MD Aug 16, 2025 10:24
[2025-08-16] MEDS: IOHEXOL 350 MG/ML 100ML IJ ONE (11:17)
--- NOTE | 2025-08-16 12:36 | DVH ---
CLINICAL INDICATION: Right thigh infection vs mass TECHNIQUE: CT of the right femur was performed with intravenous contrast. Sagittal and coronal reform atted images are provided. COMPARISON: None CT Dose: CTDI volume is mGy. Dose-length product is mGy*cm FINDINGS: No fracture or dislocation. No cortical erosion. The joint spaces are maintained. Within the medial soft tissues of the proximal to mid thigh, there is a fluid collection measuring 10.0 by 5.0 by 6.0 cm. No peripheral enhancement. There is stranding of the subcutaneous fat adjacent to the collection . There is multifocal stenosis in the distal superficial femoral artery popliteal artery. IMPRESSION: 1. 10 cm fluid collection in the subcutaneous tissues of the right thigh without significant enhancem ent favored to reflect hematoma. Infection is not excluded. 2. No CT evidence of osteomyelitis. 3. Multifocal stenosis in the superficial femoral artery and popliteal artery. All CT scans at this medical facility are performed using dose modulation techniques as appropriate t o a performed exam including the following: Automated exposure control was utilized; adjustment of th e MA and/or KV according to patient size; and use of iterative reconstruction technique.
[2025-08-16] MEDS: ACETAMINOPHEN 325 MG TAB PO PRN (12:40)
[2025-08-16] MEDS: VANCOMYCIN 1GM/250ML KIT 250 ML IV SCH (15:16)
--- NOTE | 2025-08-16 15:48 | DVH ---
EXAM: US BILAT LOW EXT ART DUPLEX INDICATION: Right leg swelling and pain. cellulitis. Peripheral vascular disease. TECHNIQUE: Grayscale and color doppler and spectral doppler imaging evaluation of the right and left lower extremity arterial system was performed COMPARISON: None available at the time of dictation. FINDINGS: RIGHT LOWER EXTREMITY ARTERIES: Common femoral artery: 241 Cm/s, triphasic Deep femoral artery: 169 Cm/s, triphasic Proximal femoral artery: No flow Mid femoral artery: No flow Distal femoral artery: 76 Cm/s, monophasic Popliteal artery: 39 Cm/s, monophasic Posterior tibial artery: 30 Cm/s, monophasic Dorsalis pedis artery: 56 Cm/s, monophasic LEFT LOWER EXTREMITY ARTERIES: Common femoral artery: 248 Cm/s, triphasic Deep femoral artery: 138 Cm/s, triphasic Proximal femoral artery: No flow Mid femoral artery: No flow Distal femoral artery: 11 Cm/s, monophasic Popliteal artery: 21 Cm/s, monophasic Posterior tibial artery: 26 Cm/s, monophasic Dorsalis pedis artery: No flow REFERENCE VALUES: Normal velocity ranges (in cm/sec) are as follows: DATABASE SPECIALIST 95-140, SFA 75-105, popliteal 54-84, tibial 41-81 cm/sec. Stenosis categories: 1.5-2.0 x normal velocity = 30-49%, 2.0-4.0 x normal velocity = 50-75%, >4.0 x normal velocity = >75%. IMPRESSION: 1. Occlusion of bilateral superficial femoral arteries. 2. Moderate (50-75 %) stenosis of bilateral common femoral arteries. 3. Diminished flow in bilateral runoff vessels. No flow in left DPA.
--- NOTE | 2025-08-16 16:48 | DVHPN2 ---
Subjective Patient is currently getting Doppler arterial both lower extremity to rule out peripheral vascular disease. 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 Medications Current Medications Medications Dose Ordered Sig/David Route Start Time Stop Time Status Last Admin Dose Admin Sodium Chloride 1,000 ml @ 120 mls/hr Q8H20M IV 08/14/25 16:15 08/16/25 01:18 120 MLS/HR Acetaminophen/ Hydrocodone Bitart 1 tab Q4HP PRN PO 08/14/25 16:15 08/16/25 15:23 1 TAB Ondansetron HCl 4 mg Q4HP PRN IV 08/14/25 16:15 Docusate Sodium 100 mg BIDPRN PRN PO 08/14/25 16:15 08/15/25 21:05 100 MG Enoxaparin Sodium 40 mg DAILY SC 08/15/25 10:00 08/16/25 10:04 40 MG Acetaminophen 650 mg Q6HP PRN PO 08/14/25 16:15 08/16/25 12:40 650 MG Morphine Sulfate 2 mg Q4HPRN PRN IV 08/14/25 16:15 Nitroglycerin 0.4 mg Q5MINP PRN SL 08/14/25 16:15 Morphine Sulfate 2 mg Q30M PRN IV 08/14/25 16:15 Ceftriaxone Sodium/Dextrose 50 ml @ 50 mls/hr DAILY IV 08/14/25 16:15 08/16/25 10:05 50 MLS/HR Diagnostic Test (Pha) 1 strip Q6HR 08/15/25 06:00 08/16/25 12:00 1 STRIP Insulin Human Regular Q6HR SC 08/15/25 06:00 08/16/25 12:00 9 UNITS Dextrose 50 ml UD PRN IV 08/15/25 05:15 Insulin Glargine 20 units HS SC 08/15/25 22:00 08/15/25 21:20 20 UNITS Vancomycin HCl 0 ml @ 0 mls/hr UD IV 08/15/25 22:30 Vancomycin HCl 250 ml @ 250 mls/hr Q12H IV 08/16/25 15:00 08/16/25 15:16 250 MLS/HR Laboratory Results Laboratory Tests 08/15/25 06:18 08/16/25 10:44 Assessment/Plan Assessment/Plan 70-year-old female with a known history of diabetes mellitus type 2, chronic tobacco use disorder presented to the hospital with a right inner thigh pain with failed antibiotics treatment outpatient found to have 1. Right lower extremity cellulitis, with a 10 cm fluid collection in the right thigh 2. Superficial femoral artery/popliteal artery stenosis rule out peripheral vascular disease Doppler arterial has been ordered 3. Leukocytosis 4. Hyperglycemia in the setting of diabetes mellitus type 2 -IV antibiotics, arterial Doppler, orthopedics consultation for right thigh I&D. Plan discussed with: Patient My Orders Orders - CEDRIC LUCIO MD Procedure Category Date Status Time Insulin Lantus PHA 08/15/25 In Process (Glargine) (Lantus) 22:00 Consistent DIET 08/15/25 Transmitted Carb(Ccho)Diabetes Dinner * Cardiology Consult CONS 08/16/25 Transmitted 12:51 Bilat Low Ext Art US 08/16/25 Resulted Duplex 12:45 Date of Service: Aug 16, 2025 Billing Provider: CEDRIC LUCIO MD Common Visit Codes: NOT BILLABLE CEDRIC LUCIO MD Aug 16, 2025 16:48
--- NOTE | 2025-08-16 18:37 | DVHINCON2 ---
Date Seen: Aug 16, [address] Metz Reason for Consultation Peripheral vascular disease. History of Present Illness Patient is a 70-year-old lady with a history of the right lower extremity pain. Pain in her right groin and inner thigh. She was noted to have a cellulitis. She did have an abnormal vascular study for which cardiac and peripheral vascular disease evaluation was requested. A DVT was ruled out. Past Medical History Her past medical history significant for hypertension. Increased body mass i ndex. No previous history of congestive heart failure CAD. Past Surgical History Noncontributory Family History: FH: dementia G8 MOTHER Allergies: Coded Allergies: NO KNOWN ALLERGIES (Unverified , 08/04/25) Home Meds Active Scripts Sulfamethoxazole W/Trimethopri (Bactrim Ds Tablet) 1 Tab Tb, 1 TAB PO BID for 5 Days, #10 TAB Prov:DEREKGEORGE PAC 08/04/25 Current Medications Current Medications Medications (Trade) Dose Ordered Sig/David Route PRN Reason Start Time Stop Time Status Last Admin Insulin Glargine (Lantus) 20 units HS SC 08/15/25 22:00 08/15/25 21:20 Vancomycin HCl 0 ml @ 0 mls/hr UD IV 08/15/25 22:30 Vancomycin HCl 250 ml @ 250 mls/hr Q12H IV 08/16/25 15:00 08/16/25 15:16 Review of Systems Review of Systems Constitutional: No symptom reported Ears, Nose, & Throat: No symptom reported Eyes: No symptom reported Pulmonary/Respiratory: No symptom reported Cardiovascular: No symptom reported Gastrointestinal: No symptom reported Genitourinary: No symptom reported Musculoskeletal: Leg pain (riht leg /inner thigh pain) Skin: No symptom reported Psychiatric: No symptom reported Endocrine: No symptom reported Vital Signs Vital Signs Date Time Temp Pulse Resp B/P (MAP) Pulse Ox O2 Delivery O2 Flow Rate FiO2 08/16/25 16:30 98.6 90 16 114/68 (83) 93 98.6 08/15/25 20:00 Room Air* 0 21 Physical Exam She is awake alert and oriented no acute distress. HEENT examination is otherwise unremarkable orally well hydrated. Trachea central neck supple thyr oid is nonpalpable is no jugular distention no bruits. Lungs are good air entry no rales or rhonchi. Heart exam reveals regular S1-S2 soft S4. abdominal examination is unremarkable. Extremities reveal adequate perfusion without clubbing or cyanosis no edema. Neurologically intact. Integumentary is otherwise within normal limits. Right lower extremity reveals slight tenderness and hyperemia in the groin area and medial aspect of the thigh. . Extremities are slightly cool however under perfused. No acute limb ischemia present. Pulses are diminished bilaterally. Pachydermatosis noted in the lower distal extremities. Neurologically intact. Labs/Diagnostic Data Labs Test 08/16/25 17:59 08/16/25 10:44 08/15/25 06:18 08/14/25 10:50 Range/Units POC Glucose 254 H 70-106 mg/dl Creatinine 0.58 # 0.550-1.02 mg/dL Glomerular Filtration Rate Calc 98 >90 mL/min White Blood Count 22.0 H 4.4-10.8 10^3/uL Red Blood Count 4.22 4.0-5.20 10^6/uL Hemoglobin 12.8 12.2-16.2 g/dL Hematocrit 37.4 # 36.0-46.0 % Mean Corpuscular Volume 88.6 80.0-100.0 fL Mean Corpuscular Hemoglobin 30.3 28.0-32.0 pg Mean Corpuscular Hemoglobin Concent 34.3 32.0-36.0 g/dL Red Cell Distribution Width 13.6 11.8-14.3 % Platelet Count 284 140-450 10^3/uL Mean Platelet Volume 8.5 6.9-10.8 fL Neutrophils (%) (Auto) 90.2 H 37.0-80.0 % Lymphocytes (%) (Auto) 4.8 L 10.0-50.0 % Monocytes (%) (Auto) 4.9 0.0-12.0 % Eosinophils (%) (Auto) 0.0 0.0-7.0 % Basophils (%) (Auto) 0.1 0.0-2.0 % Neutrophils # (Auto) 19.9 H 1.6-8.6 10 ^3/uL Lymphocytes # (Auto) 1.1 0.4-5.4 10 ^3/uL Monocytes # (Auto) 1.1 0-1.3 10 ^3/uL Eosinophils # (Auto) 0 0-0.8 10 ^3/uL Basophils # (Auto) 0 0-0.2 10 ^3/uL Nucleated Red Blood Cells 0.0 % Sodium Level 132 L 136-145 mmol/L Potassium Level 3.8 3.5-5.1 mmol/L Chloride Level 100 98-107 mmol/L Carbon Dioxide Level 20 20-31 mmol/L Anion Gap 12 5-15 Blood Urea Nitrogen 21 9-23 mg/dL BUN/Creatinine Ratio 20.8 H 10.0-20.0 Serum Glucose 391 H 74-106 mg/dL Hemoglobin A1c > 14.0 H <5.7 % A1C Calcium Level 9.3 8.7-10.4 mg/dL Total Bilirubin 0.2 0.2-1.0 mg/dL Aspartate Amino Transferase (AST) 17 13-40 U/L Alanine Aminotransferase (ALT) 18 7-40 U/L Alkaline Phosphatase 142 H 46-116 U/L Total Protein 6.2 5.7-8.2 g/dL Albumin 3.4 3.2-4.8 g/dL Erythrocyte Sedimentation Rate 83 H 0-20 mm/hr Assessment Peripheral vascular disease with occlusion of bilateral superficial femoral arteries. Hypertension. Increased BMI. Fluid collection in right femoral area and thigh rule out abscess formation. Diabetes mellitus. Uncontrolled. Notably elevated hemoglobin A1c. Plan/Recommendation Given her severe peripheral vascular disease would strongly recommend an ang iographic evaluation with possible peripheral vascular intervention. We will await for resolution of WBC count before peripheral vascular intervention. Consider drainage of the right thigh fluid collection and rule out abscess formation. No acute limb ischemia present at this time, we will continue to follow. We will obtain echocardiographic evaluation as well Plan discussed with: Patient NYHA Physical activity limitations: Class1(None)absent sob, Date of Service: Aug 16, 2025 Billing Provider: PIO STEPHENS Sr., MD Cardiology Common Codes: [id number] INP/OBS CARE (High) PIO STEPHENS Sr., MD Aug 16, 2025 18:37
--- NOTE | 2025-08-16 19:13 | DVH ---
EXAMINATION: MRI MRI R FEMUR WO CONTRAST TECHNIQUE: MRI of the right femur was performed. HISTORY: rule out stress fracture COMPARISON: CT CT R FEMUR WITH WO CONTRAST on DOS: 08/16/25, US RT LOWER DVT on DOS: 08/14/25, US RI GHT LOWER EXTREMITY ULTRASOU on DOS: 08/04/25 FINDINGS: Limited study due to the large field of view and lack of any axial images. Large lobulated fluid collection along the anterior aspect of the thigh, poorly assessed on this stud y. Suspect some edema within the quadriceps musculature as well the sartorius, also poorly assessed with out axial images. No abnormal marrow edema or hypointense fracture line to suggest a recent fracture. IMPRESSION: Limited study due to the large field of view and lack of any axial images. No abnormal marrow edema or hypointense fracture line to suggest a recent fracture. Suspect some edema within the quadriceps musculature as well the sartorius, also poorly assessed with out axial images. Large lobulated fluid collection along the anterior aspect of the thigh, poorly assessed on this stud y. This presumably represents a hematoma. If there is concern for a muscular injury suggest the patient return for axial imaging.
--- NOTE | 2025-08-16 20:31 | DVHINCON2 ---
Consult Note Consult Consult Note History of Present Illness: The patient is a 70-year-old female evaluated today for right thigh pain and difficulty ambulating. She reports that over the last several days, her right thigh pain has progressively worsened, now preventing her from walking. She denies groin pain. She admits to experiencing three mechanical falls in the past week but denies any direct trauma to the anterior thigh region. There has been no fever, chills, or systemic illness. No lower back , Joint pains reported. No hx of DM2. No blood disorders reported. No lower extremity nummbness/tingling reported. Imaging studies completed include MRI, CT, and duplex vascular studies/US studies. CT: Demonstrated a large lobulated 10 cm fluid collection along the anterior thigh, consistent with a hematoma. No evidence of osteomyelitis, NO FRACTURES. Vascular Duplex: Showed occlusion of bilateral superficial femoral arteries, 5075 % stenosis of bilateral common femoral arteries, and diminished runoff flow with no flow in the left dorsalis pedis artery. No femoropopliteal venous thrombosis was identified. She was referred to Orthopedics for evaluation of pain and hematoma EVAL Objective / Physical Exam: General: Alert, cooperative, appears uncomfortable due to right thigh pain. Right Lower Extremity (RLE): Inspection: No erythema or warmth. Mild diffuse swelling of the right thigh compared to contralateral side. Palpation: Tenderness to palpation (TTP) over the anterior quadriceps region. Quadriceps and calf compartments are soft and compressible. Edema: RLE mildly edematous compared to the left. Neurovascular: Gross neurovascularly intact distally. Palpable dorsalis pedis and posterior tibial pulses diminished but present. Capillary refill < 2 second s. Range of Motion: Unable to perform knee or hip exam secondary to severe anterior quadriceps pain that worsens with any movement of the RLE. Skin: No open wounds or drainage. Assessment: 1. Right thigh hematoma (10 cm fluid collection on CT) likely post-traumatic given recent falls. 2. Severe peripheral arterial disease (bilateral SFA occlusions, multifocal femoral stenosis). 3. Right thigh pain, inability to ambulate secondary to hematoma and ischemic pain. 4. No evidence of osteomyelitis or DVT. Plan: 1. Vascular Surgery Consultation Evaluate for critical limb ischemia 2. Orthopedic Management: Continue non-operative management , Unsure of the hematoma at this time. Monitor for infection (trend CBC, CRP, ESR). Please reeval anticoagulation use as it can affect hematoma stability if its present Re-image if swelling, pain, or erythema increases. 3. Pain Control: Multimodal regimen (acetaminophen low-dose opioid). Avoid NSAIDs if renal or vascular compromise. 4. Mobility: Bed rest initially for pain control; gradual progression to assisted ambulation as tolerated once vascular status optimized. Physical therapy when cleared by vascular surgery. 5. Vascular Risk Management: antiplatelet and statin therapy recs from vascular team. Optimize blood pressure, glycemic control, and auto travel counselor on smoking cessation if applicable. 6. Follow-Up: Orthopedic re-evaluation in 2448 hours or sooner if signs of infection or compartment change occur. please reconsult Ortho if needed Plan discussed with: Patient, Other (bedside nurse) Visit Coding Surgery Date of Service if different f: Aug 16, 2025 Billing Provider: JEWELS TELLES Surgery Visit Codes: [id number] - INP CONSULT <55 MIN JEWELS TELLES Aug 16, 2025 20:31
[2025-08-17] VITALS (8 sets, daily range): BP systolic 106–163; BP diastolic 70–80; PULSE 80–96; RESP 17–20; TEMP 97.9–98.5; O2SAT 92–95
[2025-08-17] MEDS: KETOROLAC TROMETH 30 MG/ML 1ML VIAL IV ONE (00:22)
--- NOTE | 2025-08-17 10:59 | DVHPN2 ---
Progress Note - Dictate Date Seen: Aug 17, 2025 Medical Necessity Reason Pt with a Central, PICC or Fol: No Subjective no new complaints vital signs Vital Sign Date Time Temp Pulse Resp B/P (MAP) Pulse Ox O2 Delivery O2 Flow Rate FiO2 08/17/25 09:00 97.9 82 18 121/71 (88) 94 97.9 08/16/25 20:00 Room Air* 0 21 Total Intake and Output 08/16/25 08/16/25 08/17/25 15:00 23:00 07:00 Intake Total 350 ml Balance 350 ml medications Current Medications Medications Dose Ordered Sig/David Route Start Time Stop Time Status Last Admin Dose Admin Sodium Chloride 1,000 ml @ 120 mls/hr Q8H20M IV 08/14/25 16:15 08/17/25 02:58 120 MLS/HR Acetaminophen/ Hydrocodone Bitart 1 tab Q4HP PRN PO 08/14/25 16:15 08/17/25 05:46 1 TAB Ondansetron HCl 4 mg Q4HP PRN IV 08/14/25 16:15 Docusate Sodium 100 mg BIDPRN PRN PO 08/14/25 16:15 08/15/25 21:05 100 MG Enoxaparin Sodium 40 mg DAILY SC 08/15/25 10:00 08/16/25 10:04 40 MG Acetaminophen 650 mg Q6HP PRN PO 08/14/25 16:15 08/16/25 12:40 650 MG Morphine Sulfate 2 mg Q4HPRN PRN IV 08/14/25 16:15 Nitroglycerin 0.4 mg Q5MINP PRN SL 08/14/25 16:15 Morphine Sulfate 2 mg Q30M PRN IV 08/14/25 16:15 Ceftriaxone Sodium/Dextrose 50 ml @ 50 mls/hr DAILY IV 08/14/25 16:15 08/16/25 10:05 50 MLS/HR Diagnostic Test (Pha) 1 strip Q6HR 08/15/25 06:00 08/17/25 05:43 1 STRIP Insulin Human Regular Q6HR SC 08/15/25 06:00 08/17/25 05:43 9 UNITS Dextrose 50 ml UD PRN IV 08/15/25 05:15 Insulin Glargine 20 units HS SC 08/15/25 22:00 08/16/25 21:54 20 UNITS Vancomycin HCl 0 ml @ 0 mls/hr UD IV 08/15/25 22:30 Vancomycin HCl 250 ml @ 250 mls/hr Q12H IV 08/16/25 15:00 08/17/25 02:58 250 MLS/HR objective General Appeara: Well developed, Well nourished, Normal Appearance Head Exam: Normal inspection Neck Exam: Normal inspection, Non-tender, Normal alignment Eye Exam: bilateral eye Normal inspection, bilateral eye PERRL, bilateral eye EOMI Mouth: Normal Inspection Pulmonary/Respiratory: Normal inspection, Normal breath sounds, Lungs clear Cardiovascular/Chest: Normal inspection, Regular rate, Normal Rhythm Abdominal Exam: Normal bowel sounds, Soft Legs: right thigh tenderness MATERIALS SCIENTIST Exam: grossly intact Neuro/Mental St: Alert, Oriented Eye contact/ Speech: Cooperative, Good eye contact, Normal speech Thoughts/Psych: Normal thought pattern laboratory and microbiology Laboratory Tests 08/17/25 05:19 08/15/25 06:18 Test 08/15/25 06:18 Range/Units Serum Glucose 391 H 74-106 mg/dL Assessment/Plan A 70 yo female with SIRS right thigh abscess right thigh pain uncontrolled diabetes Hba1c 14 peripheral artery disease high ESR Obesity smoker recommendations ortho consult placed to evaluate thigh collection my suspicion is that its likely an abscess with high wbc count and esr seen by ortho, ordered MRI femur. it shows multilobulated collection possible hematoma.. awaiting for recommendations from ORtho continue IV Vancomycin per pharmacy continue IV cefriaxone 2g daily reviewed CT of right thigh with hip/ knee with contrast showed collection of 10 cm in thigh area. repeat CBC tomorrow; still elevated repeat labs cardiology consulted, leg pain partially could be due to claudication?? cT shows evidence of PAD Doppler arterial ordered by primary blood culture ordered US doppler rules out DVT pain control prognosis gaurded plan discussed with Dr Metz Total time 50 minutes spent during the encounter Plan discussed with: Patient, Other ZACHARIAH OLSON MD Aug 17, 2025 10:59
--- NOTE | 2025-08-17 15:00 | DVHPN2 ---
Subjective Patient's Doppler arterial shows evidence of bilateral superficial femoral arteries occlusion as well as common femoral arteries with a no flow in left DPA. Vascular surgery has been consulted. 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 Medications Current Medications Medications Dose Ordered Sig/David Route Start Time Stop Time Status Last Admin Dose Admin Sodium Chloride 1,000 ml @ 120 mls/hr Q8H20M IV 08/14/25 16:15 08/17/25 10:55 120 MLS/HR Acetaminophen/ Hydrocodone Bitart 1 tab Q4HP PRN PO 08/14/25 16:15 08/17/25 11:37 1 TAB Ondansetron HCl 4 mg Q4HP PRN IV 08/14/25 16:15 Docusate Sodium 100 mg BIDPRN PRN PO 08/14/25 16:15 08/15/25 21:05 100 MG Enoxaparin Sodium 40 mg DAILY SC 08/15/25 10:00 08/17/25 10:00 40 MG Acetaminophen 650 mg Q6HP PRN PO 08/14/25 16:15 08/16/25 12:40 650 MG Morphine Sulfate 2 mg Q4HPRN PRN IV 08/14/25 16:15 Nitroglycerin 0.4 mg Q5MINP PRN SL 08/14/25 16:15 Morphine Sulfate 2 mg Q30M PRN IV 08/14/25 16:15 Ceftriaxone Sodium/Dextrose 50 ml @ 50 mls/hr DAILY IV 08/14/25 16:15 08/17/25 10:00 50 MLS/HR Diagnostic Test (Pha) 1 strip Q6HR 08/15/25 06:00 08/17/25 11:38 1 STRIP Insulin Human Regular Q6HR SC 08/15/25 06:00 08/17/25 05:43 9 UNITS Dextrose 50 ml UD PRN IV 08/15/25 05:15 Insulin Glargine 20 units HS SC 08/15/25 22:00 08/16/25 21:54 20 UNITS Vancomycin HCl 0 ml @ 0 mls/hr UD IV 08/15/25 22:30 Vancomycin HCl 250 ml @ 250 mls/hr Q12H IV 08/16/25 15:00 08/17/25 02:58 250 MLS/HR Laboratory Results Laboratory Tests 08/15/25 06:18 08/17/25 05:19 Microbiology Microbiology Date/Time Source Procedure Growth Status 08/15/25 22:49 Blood Blood Culture - Preliminary NO GROWTH AFTER 24 HOURS OF INCUBATION. Resulted Assessment/Plan Assessment/Plan 70-year-old female with a known history of diabetes mellitus type 2, chronic tobacco use disorder presented to the hospital with a right inner thigh pain with failed antibiotics treatment outpatient found to have 1. Right lower extremity cellulitis, with a 10 cm fluid collection in the right thigh abscess/hematoma 2. Peripheral vascular disease right lower extremity 3. Leukocytosis likely reactive 4. Right thigh fluid collection about 10 cm, orthopedics suggested it is a hematoma 4. Uncontrolled Hyperglycemia in the setting of diabetes mellitus type 2 -IV antibiotics, infectious disease consultation, vascular surgery consultation for peripheral vascular disease. -repeat BMP -continue long-acting insulin Lantus. Plan discussed with: Patient, Other My Orders Orders - CEDRIC LUCIO MD Procedure Category Date Status Time Consult CONS 08/17/25 Transmitted Vascular/Endovascular 13:13 Basic Metabolic Panel LAB 08/18/25 Verified 06:00 Complete Blood Count LAB 08/18/25 Verified 06:00 Magnesium LAB 08/18/25 Verified 06:00 Basic Metabolic Panel LAB 08/17/25 Transmitted 14:56 Date of Service: Aug 17, 2025 Billing Provider: CEDRIC LUCIO MD Common Visit Codes: NOT BILLABLE CEDRIC LUCIO MD Aug 17, 2025 15:00
[2025-08-17 15:21] LABS: Chloride 104 mmol/L (98-107); Potassium 3.6 mmol/L (3.5-5.1)
[2025-08-17 15:22] LABS: Anion Gap 11 (5-15); Calcium 9.1 mg/dL (8.7-10.4); Carbon Dioxide 21 mmol/L (20-31)
[2025-08-17 15:27] LABS: BUN/Creatinine Ratio 19.0 (10.0-20.0); Blood Urea Nitrogen 12 mg/dL (9-23)
[2025-08-17 15:32] LABS: Glucose 201 mg/dL (74-106); Sodium 136 mmol/L (136-145)
--- NOTE | 2025-08-17 17:27 | DVHPN2 ---
Consult Progress Note Subjective Other Systems: Patient complaining of pain to right upper thigh. Objective vital signs Vital Sign Date Time Temp Pulse Resp B/P (MAP) Pulse Ox O2 Delivery O2 Flow Rate FiO2 08/17/25 13:00 98.5 92 17 163/76 (105) 94 98.5 08/16/25 20:00 Room Air* 0 21 Total Intake and Output 08/16/25 08/16/25 08/17/25 15:00 23:00 07:00 Intake Total 350 ml Balance 350 ml medications Current Medications Medications Dose Ordered Sig/David Route Start Time Stop Time Status Last Admin Dose Admin Sodium Chloride 1,000 ml @ 120 mls/hr Q8H20M IV 08/14/25 16:15 08/17/25 11:55 120 MLS/HR Acetaminophen/ Hydrocodone Bitart 1 tab Q4HP PRN PO 08/14/25 16:15 08/17/25 11:37 1 TAB Ondansetron HCl 4 mg Q4HP PRN IV 08/14/25 16:15 Docusate Sodium 100 mg BIDPRN PRN PO 08/14/25 16:15 08/15/25 21:05 100 MG Enoxaparin Sodium 40 mg DAILY SC 08/15/25 10:00 08/17/25 10:00 40 MG Acetaminophen 650 mg Q6HP PRN PO 08/14/25 16:15 08/16/25 12:40 650 MG Morphine Sulfate 2 mg Q4HPRN PRN IV 08/14/25 16:15 Nitroglycerin 0.4 mg Q5MINP PRN SL 08/14/25 16:15 Morphine Sulfate 2 mg Q30M PRN IV 08/14/25 16:15 Ceftriaxone Sodium/Dextrose 50 ml @ 50 mls/hr DAILY IV 08/14/25 16:15 08/17/25 10:00 50 MLS/HR Diagnostic Test (Pha) 1 strip Q6HR 08/15/25 06:00 08/17/25 11:38 1 STRIP Insulin Human Regular Q6HR SC 08/15/25 06:00 08/17/25 05:43 9 UNITS Dextrose 50 ml UD PRN IV 08/15/25 05:15 Insulin Glargine 20 units HS SC 08/15/25 22:00 08/16/25 21:54 20 UNITS Vancomycin HCl 0 ml @ 0 mls/hr UD IV 08/15/25 22:30 Vancomycin HCl 250 ml @ 250 mls/hr Q12H IV 08/16/25 15:00 08/17/25 15:07 250 MLS/HR Examination: GENERAL:Normal, LUNGS:Normal, CVS:Normal, NEURO:Normal laboratory and microbiology Laboratory Tests 08/17/25 13:51 08/15/25 06:18 Test 08/17/25 13:51 Range/Units Serum Glucose 201 H 74-106 mg/dL Problem List/Assessment/Plan Problem List/Assessment/Plan Peripheral vascular disease with occlusion of bilateral superficial femoral arteries Hypertension Right lower extremity cellulitis Right thigh abscess vs hematoma Type 2 diabetes mellitus, uncontrolled (hgb A1c >14%) Obesity We will continue with the following plan/recommendations (): Case discussed with . We will proceed with with obtaining a transthoracic echocardiogram to evaluate cardiac function. Lower extremity arterial duplex reviewed by MD and reveals peripheral vascular disease with occlusion of bilateral superficial arteries. The patient we will need eventual peripheral angiogram. No acute limb ischemia present during time of assessment. Infectious disease ruling out possible abscess. Continue with antibiotics per primary care team. Plans for peripheral angiogram once abscess ruled out and with improvement of WBCs. Further recommendations per clinical course and progression. Thank you for allowing us to care for this patient. Please call with any questions or concerns. This medical document was created using an electronic medical record system with voice recognition software and computerized dictation system. Although this document has been carefully reviewed, there might still be some phonetic and typographical errors. Occasional wrong-word or ``sound-alike substitutions may have occurred due to the inherent limitations of voice recognition software. These areas are purely typographical due to imperfections of the software programs and do not reflect any compromise in the patient's medical care. Please read the chart carefully and recognize, using context, where these substitutions have occurred. Plan discussed with: Patient Date of Service: Aug 17, 2025 Billing Provider: ERLINDA FULLER Common Visit Codes: [id number] INP/OBS CARE(HIGH) ERLINDA FULLER Aug 17, 2025 17:27
[2025-08-18] VITALS (7 sets, daily range): BP systolic 127–188; BP diastolic 82–108; PULSE 76–97; RESP 16–22; TEMP 98.1–98.8; O2SAT 93–96
[2025-08-18 07:28] LABS: Hematocrit 32.7 % (36.0-46.0); Hemoglobin 11.3 g/dL (12.2-16.2); Mean Corpuscular Hemoglobin 30.3 pg (28.0-32.0); Mean Corpuscular Volume 87.1 fL (80.0-100.0); Nucleated Red Blood Cells % 0.1 %
[2025-08-18 07:45] LABS: Chloride 104 mmol/L (98-107); Potassium 3.5 mmol/L (3.5-5.1)
[2025-08-18 07:46] LABS: Anion Gap 8 (5-15); Carbon Dioxide 24 mmol/L (20-31)
[2025-08-18 07:51] LABS: BUN/Creatinine Ratio 17.8 (10.0-20.0); Magnesium 1.8 mg/dL (1.6-2.6)
[2025-08-18 07:54] LABS: Blood Urea Nitrogen 8 mg/dL (9-23); Calcium 8.5 mg/dL (8.7-10.4); Glucose 201 mg/dL (74-106)
[2025-08-18 07:55] LABS: Sodium 136 mmol/L (136-145)
--- NOTE | 2025-08-18 12:10 | DVHPN2 ---
Progress Note - Dictate Date Seen: Aug 18, 2025 Medical Necessity Reason Pt with a Central, PICC or Fol: No Subjective c/o leg pain vital signs Vital Sign Date Time Temp Pulse Resp B/P (MAP) Pulse Ox O2 Delivery O2 Flow Rate FiO2 08/18/25 09:00 98.6 84 18 149/82 (104) 95 98.6 08/17/25 20:00 Room Air* 0 21 Total Intake and Output 08/17/25 08/17/25 08/18/25 15:00 23:00 07:00 Intake Total 668 ml 745 ml Balance 668 ml 745 ml medications Current Medications Medications Dose Ordered Sig/David Route Start Time Stop Time Status Last Admin Dose Admin Sodium Chloride 1,000 ml @ 120 mls/hr Q8H20M IV 08/14/25 16:15 08/18/25 03:00 120 MLS/HR Acetaminophen/ Hydrocodone Bitart 1 tab Q4HP PRN PO 08/14/25 16:15 08/18/25 09:38 1 TAB Ondansetron HCl 4 mg Q4HP PRN IV 08/14/25 16:15 Docusate Sodium 100 mg BIDPRN PRN PO 08/14/25 16:15 08/15/25 21:05 100 MG Enoxaparin Sodium 40 mg DAILY SC 08/15/25 10:00 08/18/25 09:39 40 MG Acetaminophen 650 mg Q6HP PRN PO 08/14/25 16:15 08/18/25 06:46 650 MG Morphine Sulfate 2 mg Q4HPRN PRN IV 08/14/25 16:15 Nitroglycerin 0.4 mg Q5MINP PRN SL 08/14/25 16:15 Morphine Sulfate 2 mg Q30M PRN IV 08/14/25 16:15 Ceftriaxone Sodium/Dextrose 50 ml @ 50 mls/hr DAILY IV 08/14/25 16:15 08/18/25 09:39 50 MLS/HR Diagnostic Test (Pha) 1 strip Q6HR 08/15/25 06:00 08/18/25 05:57 1 STRIP Insulin Human Regular Q6HR SC 08/15/25 06:00 08/18/25 05:56 6 UNITS Dextrose 50 ml UD PRN IV 08/15/25 05:15 Insulin Glargine 20 units HS SC 08/15/25 22:00 08/17/25 22:15 20 UNITS Vancomycin HCl 0 ml @ 0 mls/hr UD IV 08/15/25 22:30 Vancomycin HCl 250 ml @ 250 mls/hr Q12H IV 08/16/25 15:00 08/18/25 02:59 250 MLS/HR objective General Appeara: Well developed, Well nourished, Normal Appearance Head Exam: Normal inspection Neck Exam: Normal inspection, Non-tender, Normal alignment Eye Exam: bilateral eye Normal inspection, bilateral eye PERRL, bilateral eye EOMI Mouth: Normal Inspection Pulmonary/Respiratory: Normal inspection, Normal breath sounds, Lungs clear Cardiovascular/Chest: Normal inspection, Regular rate, Normal Rhythm Abdominal Exam: Normal bowel sounds, Soft Legs: right thigh tenderness 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 it shows multilobulated collection possible hematoma.. awaiting for recommendations from ORtho continue IV Vancomycin per pharmacy continue IV cefriaxone 2g daily reviewed CT of right thigh with hip/ knee with contrast showed collection of 10 cm in thigh area. repeat CBC tomorrow; WBC is with in the normal range cardiology consulted, leg pain partially could be due to claudication?? cT shows evidence of PAD s/p Doppler arterial ; plan for Peripheral angiogram and vascular surgery consult blood culture prelim no grown prognosis gaurded plan discussed with team Total time 50 minutes spent during the encounter Plan discussed with: Patient, Other ZACHARIAH OLSON MD Aug 18, 2025 12:10
[2025-08-18] MEDS: HYDROcodone-ACET 10/325MG TAB PO PRN (14:37)
--- NOTE | 2025-08-18 14:57 | DVHPN2 ---
Progress Note - Dictate Date Seen: Aug 18, 2025 Medical Necessity Reason Pt with a Central, PICC or Fol: No Subjective Complains of pain in her lower legs described as burning pain. vital signs Vital Sign Date Time Temp Pulse Resp B/P (MAP) Pulse Ox O2 Delivery O2 Flow Rate FiO2 08/18/25 13:19 98.1 83 16 149/84 (105) 93 98.1 08/17/25 20:00 Room Air* 0 21 Total Intake and Output 08/17/25 08/17/25 08/18/25 15:00 23:00 07:00 Intake Total 668 ml 745 ml Balance 668 ml 745 ml medications Current Medications Medications Dose Ordered Sig/David Route Start Time Stop Time Status Last Admin Dose Admin Acetaminophen/ Hydrocodone Bitart 1 tab Q4HP PRN PO 08/14/25 16:15 Hold 08/18/25 09:38 1 TAB Ondansetron HCl 4 mg Q4HP PRN IV 08/14/25 16:15 Docusate Sodium 100 mg BIDPRN PRN PO 08/14/25 16:15 08/15/25 21:05 100 MG Enoxaparin Sodium 40 mg DAILY SC 08/15/25 10:00 08/18/25 09:39 40 MG Acetaminophen 650 mg Q6HP PRN PO 08/14/25 16:15 08/18/25 06:46 650 MG Morphine Sulfate 2 mg Q4HPRN PRN IV 08/14/25 16:15 Nitroglycerin 0.4 mg Q5MINP PRN SL 08/14/25 16:15 Morphine Sulfate 2 mg Q30M PRN IV 08/14/25 16:15 Ceftriaxone Sodium/Dextrose 50 ml @ 50 mls/hr DAILY IV 08/14/25 16:15 08/18/25 09:39 50 MLS/HR Diagnostic Test (Pha) 1 strip Q6HR 08/15/25 06:00 08/18/25 12:00 1 STRIP Insulin Human Regular Q6HR SC 08/15/25 06:00 08/18/25 12:00 3 UNITS Dextrose 50 ml UD PRN IV 08/15/25 05:15 Insulin Glargine 20 units HS SC 08/15/25 22:00 08/17/25 22:15 20 UNITS Vancomycin HCl 0 ml @ 0 mls/hr UD IV 08/15/25 22:30 Vancomycin HCl 250 ml @ 250 mls/hr Q12H IV 08/16/25 15:00 08/18/25 02:59 250 MLS/HR Acetaminophen/ Hydrocodone Bitart 1 tab Q4HP PRN PO 08/18/25 14:00 08/18/25 14:37 1 TAB objective Alert awake oriented x3. HEENT neck supple no JVD. Heart regular rate and rhythm. Lungs fair air movement without rales wheezes. Abdomen soft nontender obese positive bowel sounds. Extremities positive pulses. laboratory and microbiology Laboratory Tests 08/18/25 06:40 Test 08/18/25 06:40 Range/Units Serum Glucose 201 H 74-106 mg/dL Assessment/Plan 1. Right lower extremity cellulitis, with a 10 cm fluid collection in the right thigh hematoma with a repeat MRI results. 2. Peripheral vascular disease right lower extremity neuropathic pain 3. Leukocytosis likely reactive 4. Uncontrolled Hyperglycemia in the setting of diabetes mellitus type 2 5. Diabetic peripheral neuropathy I will add low-dose gabapentin for her pain. We will increase her [place] dose and continue daily stool softener. Otherwise patient is apparently being scheduled for peripheral angiogram to further evaluate her peripheral arterial disease. Meantime we will continue current antibiotics and IV fluids. Further clinical management per clinical course. Discussed with the patient and nurse regarding care plan. Plan discussed with: Patient, Other BRENDA ROSE MD Aug 18, 2025 14:57
--- NOTE | 2025-08-18 15:54 | DVHPN2 ---
Consult Progress Note Date Seen: Aug 18, 2025 Subjective Review of Systems: CVS:Normal, RESPIRATORY:Normal, MSK:Abnormal, NEURO:Normal Other Systems: RLE pain Objective vital signs Vital Sign Date Time Temp Pulse Resp B/P (MAP) Pulse Ox O2 Delivery O2 Flow Rate FiO2 08/18/25 13:19 98.1 83 16 149/84 (105) 93 98.1 08/17/25 20:00 Room Air* 0 21 Total Intake and Output 08/17/25 08/17/25 08/18/25 15:00 23:00 07:00 Intake Total 668 ml 745 ml Balance 668 ml 745 ml medications Current Medications Medications Dose Ordered Sig/David Route Start Time Stop Time Status Last Admin Dose Admin Ondansetron HCl 4 mg Q4HP PRN IV 08/14/25 16:15 Enoxaparin Sodium 40 mg DAILY SC 08/15/25 10:00 08/18/25 09:39 40 MG Acetaminophen 650 mg Q6HP PRN PO 08/14/25 16:15 08/18/25 06:46 650 MG Morphine Sulfate 2 mg Q4HPRN PRN IV 08/14/25 16:15 Nitroglycerin 0.4 mg Q5MINP PRN SL 08/14/25 16:15 Morphine Sulfate 2 mg Q30M PRN IV 08/14/25 16:15 Ceftriaxone Sodium/Dextrose 50 ml @ 50 mls/hr DAILY IV 08/14/25 16:15 08/18/25 09:39 50 MLS/HR Diagnostic Test (Pha) 1 strip Q6HR 08/15/25 06:00 08/18/25 12:00 1 STRIP Insulin Human Regular Q6HR SC 08/15/25 06:00 08/18/25 12:00 3 UNITS Dextrose 50 ml UD PRN IV 08/15/25 05:15 Insulin Glargine 20 units HS SC 08/15/25 22:00 08/17/25 22:15 20 UNITS Vancomycin HCl 0 ml @ 0 mls/hr UD IV 08/15/25 22:30 Vancomycin HCl 250 ml @ 250 mls/hr Q12H IV 08/16/25 15:00 08/18/25 02:59 250 MLS/HR Acetaminophen/ Hydrocodone Bitart 1 tab Q4HP PRN PO 08/18/25 14:00 08/18/25 14:37 1 TAB Sodium Chloride 1,000 ml @ 50 mls/hr Q20H IV 08/18/25 15:00 Gabapentin 100 mg TID PO 08/18/25 22:00 Examination: LUNGS:Normal, CVS:Normal, MSK:Abnormal (RLE hot to touch, edema, extreme tenderness to touch), NEURO:Normal laboratory and microbiology Laboratory Tests 08/18/25 06:40 Test 08/18/25 06:40 Range/Units Serum Glucose 201 H 74-106 mg/dL Problem List/Assessment/Plan Problem List/Assessment/Plan Severe right lower extremity cellulitis with presumably hematoma Peripheral vascular disease with occlusion of bilateral superficial femoral arteries Type 2 diabetes mellitus, uncontrolled (Hgb A1C >14%) Hypertension Obesity Plan/recommendations () Case discussed with Dr. Dominguez. The patient with an incidental finding of peripheral arterial disease could benefit from an eventual peripheral angiogram. She is not a candidate at this time given severe right lower extremity cellulitis which is extremely tender to touch/movement, hot, and swollen. The patient would not be able to tolerate with surgical intervention secondary to actual unbearable pain. Continue antibiotics per primary care team/infectious disease. Continue DVT/VTE prophylaxis. Kindly re-call cardiology team once infection has resolved. Thank you for allowing us to care for this patient. Please call with any questions or concerns. This medical document was created using an electronic medical record system with voice recognition software and computerized dictation system. Although this document has been carefully reviewed, there might still be some phonetic and typographical errors. Occasional wrong-word or ``sound-alike substitutions may have occurred due to the inherent limitations of voice recognition software. These areas are purely typographical due to imperfections of the software programs and do not reflect any compromise in the patient's medical care. Please read the chart carefully and recognize, using context, where these substitutions have occurred. Plan discussed with: Patient, Other Date of Service: Aug 18, 2025 Billing Provider: STEVEN ELY Cardiology Common Codes: [id number] HOSP CARE(High STEVEN ELY Aug 18, 2025 15:54
[2025-08-18] MEDS: SODIUM CHLORIDE 0.9% 1,000 ML IV SCH (16:08)
[2025-08-18] MEDS: POTASSIUM EFFERVESENT TAB 25 MEQ PO ONE (17:24)
[2025-08-18] MEDS: MAGNESIUM SULFATE 1GM/100ML 100 ML IV ONE (17:24)
[2025-08-18] MEDS: HYDROmorphone HCL 2 MG/ML VL/or syr IV PRN (18:57)
[2025-08-18] MEDS: GABAPENTIN 100 MG CAP PO SCH (21:51)
[2025-08-19] VITALS (7 sets, daily range): BP systolic 121–163; BP diastolic 78–95; PULSE 78–92; RESP 16–20; TEMP 97.3–98.8; O2SAT 94–96
[2025-08-19 06:18] LABS: Anion Gap 6 (5-15); Carbon Dioxide 27 mmol/L (20-31); Chloride 100 mmol/L (98-107); Potassium 3.5 mmol/L (3.5-5.1)
[2025-08-19 06:19] LABS: Calcium 8.7 mg/dL (8.7-10.4)
[2025-08-19 06:23] LABS: Sodium 133 mmol/L (136-145)
[2025-08-19 06:24] LABS: BUN/Creatinine Ratio 10.9 (10.0-20.0); Blood Urea Nitrogen < 5 mg/dL (9-23); Glucose 213 mg/dL (74-106)
[2025-08-19 06:30] LABS: Hematocrit 34.4 % (36.0-46.0); Hemoglobin 11.8 g/dL (12.2-16.2); Mean Corpuscular Hemoglobin 29.8 pg (28.0-32.0); Mean Corpuscular Volume 87.1 fL (80.0-100.0); Nucleated Red Blood Cells % 0.2 %
[2025-08-19 06:33] LABS: INR 1.04 (0.9-1.15); Partial Thromboplastin Time 30.8 SEC (24.5-34.5); Prothrombin Time 11.0 sec (9.3-11.8)
--- NOTE | 2025-08-19 11:34 | DVHPN2 ---
Progress Note - Dictate Date Seen: Aug 19, 2025 Medical Necessity Reason Pt with a Central, PICC or Fol: No Subjective c/o leg pain vital signs Vital Sign Date Time Temp Pulse Resp B/P (MAP) Pulse Ox O2 Delivery O2 Flow Rate FiO2 08/19/25 08:10 Room Air* 0 21 08/19/25 05:00 98.6 92 16 163/93 (116) 94 98.6 Total Intake and Output 08/18/25 08/18/25 08/19/25 15:00 23:00 07:00 Intake Total 515 ml 350 ml Balance 515 ml 350 ml medications Current Medications Medications Dose Ordered Sig/David Route Start Time Stop Time Status Last Admin Dose Admin Ondansetron HCl 4 mg Q4HP PRN IV 08/14/25 16:15 Enoxaparin Sodium 40 mg DAILY SC 08/15/25 10:00 08/19/25 10:14 40 MG Acetaminophen 650 mg Q6HP PRN PO 08/14/25 16:15 08/18/25 06:46 650 MG Morphine Sulfate 2 mg Q4HPRN PRN IV 08/14/25 16:15 Nitroglycerin 0.4 mg Q5MINP PRN SL 08/14/25 16:15 Morphine Sulfate 2 mg Q30M PRN IV 08/14/25 16:15 Ceftriaxone Sodium/Dextrose 50 ml @ 50 mls/hr DAILY IV 08/14/25 16:15 08/19/25 10:16 50 MLS/HR Diagnostic Test (Pha) 1 strip Q6HR 08/15/25 06:00 08/19/25 05:37 1 STRIP Insulin Human Regular Q6HR SC 08/15/25 06:00 08/19/25 05:37 6 UNITS Dextrose 50 ml UD PRN IV 08/15/25 05:15 Insulin Glargine 20 units HS SC 08/15/25 22:00 08/18/25 21:51 20 UNITS Vancomycin HCl 0 ml @ 0 mls/hr UD IV 08/15/25 22:30 Vancomycin HCl 250 ml @ 250 mls/hr Q12H IV 08/16/25 15:00 08/19/25 02:28 250 MLS/HR Acetaminophen/ Hydrocodone Bitart 1 tab Q4HP PRN PO 08/18/25 14:00 08/19/25 10:13 1 TAB Sodium Chloride 1,000 ml @ 50 mls/hr Q20H IV 08/18/25 15:00 08/18/25 16:08 50 MLS/HR Gabapentin 100 mg TID PO 08/18/25 22:00 08/19/25 05:34 100 MG Hydromorphone HCl 0.5 mg Q6HP PRN IV 08/18/25 18:45 08/19/25 02:20 0.5 MG Aspirin 162 mg DAILY PO 08/20/25 10:00 Atorvastatin Calcium 40 mg HS PO 08/19/25 22:00 objective General Appeara: Well developed, Well nourished, Normal Appearance Head Exam: Normal inspection Neck Exam: Normal inspection, Non-tender, Normal alignment Eye Exam: bilateral eye Normal inspection, bilateral eye PERRL, bilateral eye EOMI Mouth: Normal Inspection Pulmonary/Respiratory: Normal inspection, Normal breath sounds, Lungs clear Cardiovascular/Chest: Normal inspection, Regular rate, Normal Rhythm Abdominal Exam: Normal bowel sounds, Soft Legs: right thigh tenderness 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 it shows multilobulated collection possible hematoma.. awaiting for recommendations from ORtho elevated wbc is likely reactive from severe PAD and hematoma and uncontrolled DM. It has trended down. blood cx are negative hence will taper antibiotics to oral kelfex for 3 more days to complete 7 days for possible skin cellulitis on thigh associated with hematoma. Discontinue IV Vancomycin per pharmacy Discontinue IV cefriaxone 2g daily [address] CT of right thigh with hip/ knee with contrast showed collection of 10 cm in thigh area. repeat CBC tomorrow; WBC is with in the normal range cardiology consulted, leg pain partially could be due to claudication?? cT shows evidence of PAD s/p Doppler arterial ; plan for Peripheral angiogram and vascular surgery consult blood culture prelim no grown prognosis gaurded plan discussed with team Total time 50 minutes spent during the encounter Plan discussed with: ZACHARIAH Baker MD Aug 19, 2025 11:34
--- NOTE | 2025-08-19 11:56 | DVHPN2 ---
Progress Note - Dictate Date Seen: Aug 19, 2025 Medical Necessity Reason Pt with a Central, PICC or Fol: No Subjective Pain in her right lower extremity has significantly improved today per her. No complaints. vital signs Vital Sign Date Time Temp Pulse Resp B/P (MAP) Pulse Ox O2 Delivery O2 Flow Rate FiO2 08/19/25 09:00 97.6 78 18 150/84 (106) 96 97.6 08/19/25 08:10 Room Air* 0 21 Total Intake and Output 08/18/25 08/18/25 08/19/25 15:00 23:00 07:00 Intake Total 515 ml 350 ml Balance 515 ml 350 ml medications Current Medications Medications Dose Ordered Sig/David Route Start Time Stop Time Status Last Admin Dose Admin Ondansetron HCl 4 mg Q4HP PRN IV 08/14/25 16:15 Enoxaparin Sodium 40 mg DAILY SC 08/15/25 10:00 08/19/25 10:14 40 MG Acetaminophen 650 mg Q6HP PRN PO 08/14/25 16:15 08/18/25 06:46 650 MG Morphine Sulfate 2 mg Q4HPRN PRN IV 08/14/25 16:15 Nitroglycerin 0.4 mg Q5MINP PRN SL 08/14/25 16:15 Morphine Sulfate 2 mg Q30M PRN IV 08/14/25 16:15 Diagnostic Test (Pha) 1 strip Q6HR 08/15/25 06:00 08/19/25 11:30 1 STRIP Insulin Human Regular Q6HR SC 08/15/25 06:00 08/19/25 11:42 9 UNITS Dextrose 50 ml UD PRN IV 08/15/25 05:15 Insulin Glargine 20 units HS SC 08/15/25 22:00 08/18/25 21:51 20 UNITS Acetaminophen/ Hydrocodone Bitart 1 tab Q4HP PRN PO 08/18/25 14:00 08/19/25 10:13 1 TAB Sodium Chloride 1,000 ml @ 50 mls/hr Q20H IV 08/18/25 15:00 08/19/25 11:45 50 MLS/HR Gabapentin 100 mg TID PO 08/18/25 22:00 08/19/25 05:34 100 MG Hydromorphone HCl 0.5 mg Q6HP PRN IV 08/18/25 18:45 08/19/25 02:20 0.5 MG Aspirin 162 mg DAILY PO 08/20/25 10:00 Atorvastatin Calcium 40 mg HS PO 08/19/25 22:00 Cephalexin 500 mg Q6HR PO 08/19/25 12:00 UNV objective Alert awake oriented x3. HEENT neck supple no JVD. Heart regular rate and rhythm. Lungs fair air movement without rales wheezes. Abdomen soft nontender obese positive bowel sounds. Extremities positive pulses. laboratory and microbiology Laboratory Tests 08/19/25 05:41 Test 08/19/25 05:41 Range/Units Serum Glucose 213 H 74-106 mg/dL Assessment/Plan 1. Right lower extremity cellulitis, with a 10 cm fluid collection in the right thigh hematoma with a repeat MRI results. 2. Peripheral vascular disease right lower extremity neuropathic pain 3. Leukocytosis likely reactive 4. Uncontrolled Hyperglycemia in the setting of diabetes mellitus type 2 5. Diabetic peripheral neuropathy Given pain is controlled continue current pain medications. I will add aspirin and statin for peripheral arterial disease. Patient is evaluated by cardiac/vascular felt peripheral angiogram is indicated however due to cellulitis they want to wait for another 24-48 hours. Discussed with the patient. Further clinical management per clinical course. Plan discussed with: Other BRENDA ROSE MD Aug 19, 2025 11:56
[2025-08-19] MEDS: CEPHALEXIN 250 MG CAP PO SCH (13:15)
--- NOTE | 2025-08-19 16:16 | DVHSR ---
APPROVED REPORT EXAM: Two-dimensional and M-mode echocardiogram with Doppler and color Doppler. Blood Pressure: 127/84 mmHg INDICATION EVALUATE CARDIAC FUNCTION RISK FACTORS Height: 5'5, Weight: 208 DIMENSIONS LVDd3.9 (3.8-5.7cm)LA (2D)4.0 (1.9-4.0cm)Aortic Root2.9 (2.0-3.7cm) LVDs2.9 (2.5-4.0cm)LA (MM) (1.9-4.0cm)Aortic Cusp Exc1.6 (1.5-2.0cm) EF (%) 50.0 (55-70%)Rt. Atrium3.7 (1.9-4.0cm)Asc. Aorta cm IVSd0.8 (0.7-1.1cm)RV (D) (1.8-2.4cm) PWd1.1 (0.7-1.1cm) Mitral Valve MitralMitral Stenosis E wave1.01m/sMV Mean GR.mmHg A wave1.16m/sMV Peak GR.103mmHg E/A ratio0.92D MVAcm2 DECEL [id number] 1/2 Timems Aortic Valve Aortic ValveAortic Stenosis V10.83m/Renee Mean GR.6mmHg V21.58m/Renee Peak GR.10mmHg LVOT Diameter1.9 (1.8-2.4cm)Doppler AVA1.49cm2 Other Information Technically limited study due to patient position. Conclusion Technically difficult study. Difficult acoustic windows. LV enlargement. Left atrial enlargement. Mild mitral annular calcification. Mild aortic sclerosis. Left ventricular function appears preserved. EF of 55% with normal RV function. Dopplers unremarkable. No pericardial effusion masses or vegetations.
[2025-08-19] MEDS: LACTULOSE 20Gm/30ML SOLN PO ONE (17:30)
[2025-08-19] MEDS: ATORVASTATIN 20 MG TAB PO SCH (21:46)
[2025-08-20] VITALS (8 sets, daily range): BP systolic 154–174; BP diastolic 75–107; PULSE 76–88; RESP 16–18; TEMP 97.3–98.6; O2SAT 93–96
[2025-08-20] MEDS: LACTULOSE 20Gm/30ML SOLN PO SCH (09:22)
--- NOTE | 2025-08-20 11:27 | DVHPN2 ---
Progress Note - Dictate Date Seen: Aug 20, 2025 Medical Necessity Reason Pt with a Central, PICC or Fol: No Subjective c/o leg pain - Pain improved today vital signs Vital Sign Date Time Temp Pulse Resp B/P (MAP) Pulse Ox O2 Delivery O2 Flow Rate FiO2 08/20/25 09:00 98.6 86 18 168/94 (118) 96 98.6 08/19/25 20:00 Room Air* 0 21 Total Intake and Output 08/19/25 08/19/25 08/20/25 15:00 23:00 07:00 Intake Total 50 ml 1200 ml 400 ml Balance 50 ml 1200 ml 400 ml medications Current Medications Medications Dose Ordered Sig/David Route Start Time Stop Time Status Last Admin Dose Admin Ondansetron HCl 4 mg Q4HP PRN IV 08/14/25 16:15 Enoxaparin Sodium 40 mg DAILY SC 08/15/25 10:00 08/20/25 09:23 40 MG Acetaminophen 650 mg Q6HP PRN PO 08/14/25 16:15 08/18/25 06:46 650 MG Morphine Sulfate 2 mg Q4HPRN PRN IV 08/14/25 16:15 Nitroglycerin 0.4 mg Q5MINP PRN SL 08/14/25 16:15 Morphine Sulfate 2 mg Q30M PRN IV 08/14/25 16:15 Diagnostic Test (Pha) 1 strip Q6HR 08/15/25 06:00 08/20/25 05:30 1 STRIP Insulin Human Regular Q6HR SC 08/15/25 06:00 08/20/25 05:24 6 UNITS Dextrose 50 ml UD PRN IV 08/15/25 05:15 Insulin Glargine 20 units HS SC 08/15/25 22:00 08/19/25 21:49 20 UNITS Acetaminophen/ Hydrocodone Bitart 1 tab Q4HP PRN PO 08/18/25 14:00 08/20/25 09:24 1 TAB Sodium Chloride 1,000 ml @ 50 mls/hr Q20H IV 08/18/25 15:00 08/20/25 09:15 50 MLS/HR Gabapentin 100 mg TID PO 08/18/25 22:00 08/20/25 05:28 100 MG Hydromorphone HCl 0.5 mg Q6HP PRN IV 08/18/25 18:45 08/19/25 21:47 0.5 MG Aspirin 162 mg DAILY PO 08/20/25 10:00 08/20/25 09:23 162 MG Atorvastatin Calcium 40 mg HS PO 08/19/25 22:00 08/19/25 21:46 40 MG Cephalexin 500 mg Q6HR PO 08/19/25 12:00 08/20/25 05:30 500 MG Lactulose 60 ml DAILY PO 08/20/25 10:00 08/20/25 09:22 60 ML objective General Appeara: Well developed, Well nourished, Normal Appearance Head Exam: Normal inspection Neck Exam: Normal inspection, Non-tender, Normal alignment Eye Exam: bilateral eye Normal inspection, bilateral eye PERRL, bilateral eye EOMI Mouth: Normal Inspection Pulmonary/Respiratory: Normal inspection, Normal breath sounds, Lungs clear Cardiovascular/Chest: Normal inspection, Regular rate, Normal Rhythm Abdominal Exam: Normal bowel sounds, Soft Legs: right thigh tenderness 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 it shows multilobulated collection possible hematoma.. ORtho possibly no intervention elevated wbc is likely reactive from severe PAD and hematoma and uncontrolled DM. It has trended down. blood cx are negative hence will taper antibiotics to oral kelfex for 3 more days to complete 7 days for possible skin cellulitis on thigh associated with hematoma. Discontinue IV Vancomycin per pharmacy Discontinue IV cefriaxone 2g daily [address] of right thigh with hip/ knee with contrast showed collection of 10 cm in thigh area. repeat CBC tomorrow; WBC value -11.0 cardiology consulted, leg pain partially could be due to claudication?? cT shows evidence of PAD s/p Doppler arterial ; plan for Peripheral angiogram and vascular surgery consult blood culture prelim no grown prognosis gaurded plan discussed with team Total time 50 minutes spent during the encounter Dietary Evaluation Review Recommendations by RD: Dietary education by RD Comments: 1) Initiate MVI @ 1 tb qd 2) Initiate vitamin C @ 500 mg bid and zinc sulfate @ 220 mg qd for 7 days 3) Consider reducing carbohydrates from 60g CCHO to 45g CCHO 2g Na diet 3) Refer to outpatient RD/[facility] for diabetes education and weight management 4) Continue to monitor I&O, labs, and skin integrity Expected Outcomes/Goals: 1) appetite and labs to improve 2) gradual wt loss 3) f/u in 3-5 days Plan discussed with: Patient, Other ZACHARIAH OLSON MD Aug 20, 2025 11:27
--- NOTE | 2025-08-20 16:29 | DVHPN2 ---
Progress Note - Dictate Date Seen: Aug 20, 2025 Medical Necessity Reason Pt with a Central, PICC or Fol: No Subjective No complaints. Feels better. Pending peripheral vascular angiogram to be done hopefully tomorrow. Cellulitis is resolved. vital signs Vital Sign Date Time Temp Pulse Resp B/P (MAP) Pulse Ox O2 Delivery O2 Flow Rate FiO2 08/20/25 13:00 98.5 87 18 154/80 (104) 93 98.5 08/20/25 08:00 Room Air* 0 21 Total Intake and Output 08/19/25 08/19/25 08/20/25 15:00 23:00 07:00 Intake Total 50 ml 1200 ml 400 ml Balance 50 ml 1200 ml 400 ml medications Current Medications Medications Dose Ordered Sig/David Route Start Time Stop Time Status Last Admin Dose Admin Ondansetron HCl 4 mg Q4HP PRN IV 08/14/25 16:15 Enoxaparin Sodium 40 mg DAILY SC 08/15/25 10:00 08/20/25 09:23 40 MG Acetaminophen 650 mg Q6HP PRN PO 08/14/25 16:15 08/18/25 06:46 650 MG Nitroglycerin 0.4 mg Q5MINP PRN SL 08/14/25 16:15 Morphine Sulfate 2 mg Q30M PRN IV 08/14/25 16:15 Diagnostic Test (Pha) 1 strip Q6HR 08/15/25 06:00 08/20/25 12:23 1 STRIP Insulin Human Regular Q6HR SC 08/15/25 06:00 08/20/25 12:31 9 UNITS Dextrose 50 ml UD PRN IV 08/15/25 05:15 Acetaminophen/ Hydrocodone Bitart 1 tab Q4HP PRN PO 08/18/25 14:00 08/20/25 14:16 1 TAB Sodium Chloride 1,000 ml @ 50 mls/hr Q20H IV 08/18/25 15:00 08/20/25 09:15 50 MLS/HR Hydromorphone HCl 0.5 mg Q6HP PRN IV 08/18/25 18:45 08/19/25 21:47 0.5 MG Aspirin 162 mg DAILY PO 08/20/25 10:00 08/20/25 09:23 162 MG Atorvastatin Calcium 40 mg HS PO 08/19/25 22:00 08/19/25 21:46 40 MG Cephalexin 500 mg Q6HR PO 08/19/25 12:00 08/20/25 12:27 500 MG Lactulose 60 ml DAILY PO 08/20/25 10:00 08/20/25 09:22 60 ML Gabapentin 200 mg TID PO 08/20/25 22:00 Insulin Glargine 25 units HS SC 08/20/25 22:00 objective Alert awake oriented x3. HEENT neck supple no JVD. Heart regular rate and rhythm. Lungs fair air movement without rales wheezes. Abdomen soft nontender obese positive bowel sounds. Extremities positive pulses. laboratory and microbiology Laboratory Tests 08/19/25 05:41 Test 08/19/25 05:41 Range/Units Serum Glucose 213 H 74-106 mg/dL Assessment/Plan 1. Right lower extremity cellulitis, with a 10 cm fluid collection in the right thigh hematoma with a repeat MRI results. 2. Peripheral vascular disease right lower extremity neuropathic pain 3. Leukocytosis likely reactive 4. Uncontrolled Hyperglycemia in the setting of diabetes mellitus type 2 5. Diabetic peripheral neuropathy I will titrate gabapentin for peripheral neuropathy. We will try to reach out to vascular/Cardiology physician on-call to see if she can have peripheral angiogram tomorrow. I will also increase the insulin to 25 units given blood sugars still in the 200 range. Meantime continue rest of supportive care and treatment. Discussed with the nurse regarding care plan. Dietary Evaluation Review Recommendations by RD: Dietary education by RD Comments: 1) Initiate MVI @ 1 tb qd 2) Initiate vitamin C @ 500 mg bid and zinc sulfate @ 220 mg qd for 7 days 3) Consider reducing carbohydrates from 60g CCHO to 45g CCHO 2g Na diet 3) Refer to outpatient RD/[facility] for diabetes education and weight management 4) Continue to monitor I&O, labs, and skin integrity Expected Outcomes/Goals: 1) appetite and labs to improve 2) gradual wt loss 3) f/u in 3-5 days Plan discussed with: BRENDA Frances MD Aug 20, 2025 16:29
[2025-08-20] MEDS: GABAPENTIN 100 MG CAP PO SCH (21:26)
[2025-08-20] MEDS ORDERED: INSULIN LANTUS (GLARGINE) 1 /0.01ml (100units/ml) SC SCH (22:00)
[2025-08-20] MEDS: INSULIN LANTUS (GLARGINE) 1 /0.01ml (100units/ml) SC SCH (23:31)
[2025-08-21] VITALS (10 sets, daily range): BP systolic 123–175; BP diastolic 61–96; PULSE 78–93; RESP 13–18; TEMP 97.1–98.9; O2SAT 75–96
[2025-08-21] MEDS: hydrALAZINE HCL 20 MG/ML VL IV PRN (01:30)
[2025-08-21 07:22] LABS: Hematocrit 34.0 % (36.0-46.0); Hemoglobin 11.6 g/dL (12.2-16.2); Mean Corpuscular Hemoglobin 30.1 pg (28.0-32.0); Mean Corpuscular Volume 88.0 fL (80.0-100.0); Nucleated Red Blood Cells % 0.1 %
[2025-08-21 07:43] LABS: Anion Gap 9 (5-15); Carbon Dioxide 26 mmol/L (20-31); Chloride 101 mmol/L (98-107); Potassium 3.7 mmol/L (3.5-5.1)
[2025-08-21 07:45] LABS: Calcium 8.6 mg/dL (8.7-10.4); Sodium 136 mmol/L (136-145)
[2025-08-21 07:49] LABS: Glucose 210 mg/dL (74-106)
[2025-08-21 07:50] LABS: BUN/Creatinine Ratio 14.3 (10.0-20.0)
[2025-08-21 07:57] LABS: Blood Urea Nitrogen 6 mg/dL (9-23)
[2025-08-21] MEDS: ONDANSETRON HCL 4 MG/2 ML VIAL IV PRN (08:40)
--- NOTE | 2025-08-21 16:11 | DVHPN2 ---
Progress Note - Dictate Date Seen: Aug 21, 2025 Medical Necessity Reason Pt with a Central, PICC or Fol: No Subjective Complains of pain with putting any weight on the right lower extremity. Pending vascular surgery consultation. vital signs Vital Sign Date Time Temp Pulse Resp B/P (MAP) Pulse Ox O2 Delivery O2 Flow Rate FiO2 08/21/25 12:51 98.0 88 16 170/91 (117) 94 98.0 08/21/25 08:00 Room Air* 0 21 Total Intake and Output 08/20/25 08/20/25 08/21/25 15:00 23:00 07:00 Intake Total 980 ml 1560 ml 240 ml Balance 980 ml 1560 ml 240 ml medications Current Medications Medications Dose Ordered Sig/David Route Start Time Stop Time Status Last Admin Dose Admin Ondansetron HCl 4 mg Q4HP PRN IV 08/14/25 16:15 08/21/25 08:40 4 MG Acetaminophen 650 mg Q6HP PRN PO 08/14/25 16:15 08/18/25 06:46 650 MG Nitroglycerin 0.4 mg Q5MINP PRN SL 08/14/25 16:15 Morphine Sulfate 2 mg Q30M PRN IV 08/14/25 16:15 Diagnostic Test (Pha) 1 strip Q6HR 08/15/25 06:00 08/21/25 11:58 1 STRIP Insulin Human Regular Q6HR SC 08/15/25 06:00 08/21/25 12:01 9 UNITS Dextrose 50 ml UD PRN IV 08/15/25 05:15 Acetaminophen/ Hydrocodone Bitart 1 tab Q4HP PRN PO 08/18/25 14:00 08/21/25 14:32 1 TAB Sodium Chloride 1,000 ml @ 50 mls/hr Q20H IV 08/18/25 15:00 08/20/25 09:15 50 MLS/HR Hydromorphone HCl 0.5 mg Q6HP PRN IV 08/18/25 18:45 08/21/25 08:41 0.5 MG Atorvastatin Calcium 40 mg HS PO 08/19/25 22:00 08/20/25 21:26 40 MG Cephalexin 500 mg Q6HR PO 08/19/25 12:00 08/21/25 12:06 500 MG Lactulose 60 ml DAILY PO 08/20/25 10:00 08/21/25 08:39 60 ML Gabapentin 200 mg TID PO 08/20/25 22:00 08/21/25 14:32 200 MG Insulin Glargine 25 units HS@0000 SC 08/21/25 00:00 08/20/25 23:31 25 UNITS Hydralazine HCl 10 mg Q4HPRN PRN IV 08/21/25 01:15 08/21/25 05:51 10 MG Aspirin 81 mg DAILY PO 08/22/25 10:00 objective Alert awake oriented x3. HEENT neck supple no JVD. Heart regular rate and rhythm. Lungs fair air movement without rales wheezes. Abdomen soft nontender obese positive bowel sounds. Extremities positive pulses. laboratory and microbiology Laboratory Tests 08/21/25 06:15 Test 08/21/25 06:15 Range/Units Serum Glucose 210 H 74-106 mg/dL Assessment/Plan 1. Right lower extremity cellulitis, with a 10 cm fluid collection in the right thigh hematoma with a repeat MRI results. 2. Peripheral vascular disease right lower extremity neuropathic pain 3. Leukocytosis likely reactive 4. Uncontrolled Hyperglycemia in the setting of diabetes mellitus type 2 5. Diabetic peripheral neuropathy Artery aortogram with runoff to further evaluate extent of peripheral arterial disease. Vascular surgeon to evaluate her today. Continue rest of supportive care and treatment. Physical management for recommendations from the vascular surgeon. Discussed with the patient and nurse regarding care plan. Dietary Evaluation Review Recommendations by RD: Dietary education by RD Comments: 1) Initiate MVI @ 1 tb qd 2) Initiate vitamin C @ 500 mg bid and zinc sulfate @ 220 mg qd for 7 days 3) Consider reducing carbohydrates from 60g CCHO to 45g CCHO 2g Na diet 3) Refer to outpatient RD/[facility] for diabetes education and weight management 4) Continue to monitor I&O, labs, and skin integrity Expected Outcomes/Goals: 1) appetite and labs to improve 2) gradual wt loss 3) f/u in 3-5 days Plan discussed with: BRENDA Frances MD Aug 21, 2025 16:11
--- NOTE | 2025-08-21 20:28 | DVHPN2 ---
Progress Note - Dictate Date Seen: Aug 21, 2025 Medical Necessity Reason Pt with a Central, PICC or Fol: No Subjective Patient reports pain with putting any weight on the right lower extremity. Pending vascular surgery consultation. vital signs Vital Sign Date Time Temp Pulse Resp B/P (MAP) Pulse Ox O2 Delivery O2 Flow Rate FiO2 08/21/25 20:00 84 18 176/81 08/21/25 16:40 97.1 93 97.1 08/21/25 08:00 Room Air* 0 21 Total Intake and Output 08/20/25 08/20/25 08/21/25 15:00 23:00 07:00 Intake Total 980 ml 1560 ml 240 ml Balance 980 ml 1560 ml 240 ml medications Current Medications Medications Dose Ordered Sig/David Route Start Time Stop Time Status Last Admin Dose Admin Ondansetron HCl 4 mg Q4HP PRN IV 08/14/25 16:15 08/21/25 08:40 4 MG Acetaminophen 650 mg Q6HP PRN PO 08/14/25 16:15 08/18/25 06:46 650 MG Nitroglycerin 0.4 mg Q5MINP PRN SL 08/14/25 16:15 Morphine Sulfate 2 mg Q30M PRN IV 08/14/25 16:15 Diagnostic Test (Pha) 1 strip Q6HR 08/15/25 06:00 08/21/25 18:25 1 STRIP Insulin Human Regular Q6HR SC 08/15/25 06:00 08/21/25 18:30 2 UNITS Dextrose 50 ml UD PRN IV 08/15/25 05:15 Acetaminophen/ Hydrocodone Bitart 1 tab Q4HP PRN PO 08/18/25 14:00 08/21/25 14:32 1 TAB Sodium Chloride 1,000 ml @ 50 mls/hr Q20H IV 08/18/25 15:00 08/20/25 09:15 50 MLS/HR Hydromorphone HCl 0.5 mg Q6HP PRN IV 08/18/25 18:45 08/21/25 20:00 0.5 MG Atorvastatin Calcium 40 mg HS PO 08/19/25 22:00 08/20/25 21:26 40 MG Cephalexin 500 mg Q6HR PO 08/19/25 12:00 08/21/25 18:30 500 MG Lactulose 60 ml DAILY PO 08/20/25:00 08/21/25 08:39 60 ML Gabapentin 200 mg TID PO 08/20/25 22:00 08/21/25 14:32 200 MG Insulin Glargine 25 units HS@0000 SC 08/21/25 00:00 08/20/25 23:31 25 UNITS Hydralazine HCl 10 mg Q4HPRN PRN IV 08/21/25 01:15 08/21/25 05:51 10 MG Aspirin 81 mg DAILY PO 08/22/25 10:00 objective General Appeara: Well developed, Well nourished, Normal Appearance Head Exam: Normal inspection Neck Exam: Normal inspection, Non-tender, Normal alignment Eye Exam: bilateral eye Normal inspection, bilateral eye PERRL, bilateral eye EOMI Mouth: Normal Inspection Pulmonary/Respiratory: Normal inspection, Normal breath sounds, Lungs clear Cardiovascular/Chest: Normal inspection, Regular rate, Normal Rhythm Abdominal Exam: Normal bowel sounds, Soft Legs: right thigh tenderness 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 it shows multilobulated collection possible hematoma.. awaiting for recommendations from ORtho elevated wbc is likely reactive from severe PAD and hematoma and uncontrolled DM. It has trended down. blood cx are negative hence will taper antibiotics to oral kelfex for 3 more days to complete 7 days for possible skin cellulitis on thigh associated with hematoma. Discontinued IV Vancomycin per pharmacy [Last dose given on 08/19] Discontinued IV Ceftriaxone 2g daily [Last dose given on 08/19] reviewed CT of right thigh with hip/ knee with contrast showed collection of 10 cm in thigh area. repeated CBC showed normal WBC value cardiology consulted, leg pain partially could be due to claudication?? cT shows evidence of PAD s/p Doppler arterial ; plan for Peripheral angiogram and vascular surgery consult blood culture no grown prognosis guarded plan discussed with team Total time 50 minutes spent during the encounter Dietary Evaluation Review Recommendations by RD: Dietary education by RD Comments: 1) Initiate MVI @ 1 tb qd 2) Initiate vitamin C @ 500 mg bid and zinc sulfate @ 220 mg qd for 7 days 3) Consider reducing carbohydrates from 60g CCHO to 45g CCHO 2g Na diet 3) Refer to outpatient RD/[facility] for diabetes education and weight management 4) Continue to monitor I&O, labs, and skin integrity Expected Outcomes/Goals: 1) appetite and labs to improve 2) gradual wt loss 3) f/u in 3-5 days Plan discussed with: ZACHARIAH Baker MD Aug 21, 2025 20:28
--- NOTE | 2025-08-21 20:46 | DVHCONRES ---
Date Seen: Aug 21, 2025 Resident Creating Document: LUPE ABERNATHY Jr., MD Referring Physician sumeet Reason for Consultation pad History of Present Illness Patient is a 70-year-old lady with a history of the right lower extremity pain. Pain in her right groin and inner thigh. She was noted to have a cellulitis. Denies any claudication or rest pain. Past Medical History Obesity Past Surgical History None Family History: FH: dementia G8 MOTHER Social History Smoke pack a day Allergies: Coded Allergies: NO KNOWN ALLERGIES (Unverified , 08/04/25) Home Meds Active Scripts Sulfamethoxazole W/Trimethopri (Bactrim Ds Tablet) 1 Tab Tb, 1 TAB PO BID for 5 Days, #10 TAB Prov:GEORGE REED PAC 08/04/25 Current Medications Current Medications Medications (Trade) Dose Ordered Sig/David Route PRN Reason Start Time Stop Time Status Last Admin Gabapentin (Neurontin Capsule) 200 mg TID PO 08/20/25 22:00 08/21/25 14:32 Insulin Glargine (Lantus) 25 units HS SC 08/20/25 22:00 08/20/25 20:36 DC Insulin Glargine (Lantus) 25 units HS@0000 SC 08/21/25 00:00 08/20/25 23:31 Hydralazine HCl (Apresoline Injection) 10 mg Q4HPRN PRN IV SBP>160 08/21/25 01:15 08/21/25 05:51 Aspirin (Ecotrin Enteric Coated Tablet) 81 mg DAILY PO 08/22/25 10:00 Review of Systems All systems reviewed otherwise negative in the HPI. Vital Signs Vital Signs Date Time Temp Pulse Resp B/P (MAP) Pulse Ox O2 Delivery O2 Flow Rate FiO2 08/21/25 20:00 84 18 176/81 08/21/25 16:40 97.1 93 97.1 08/21/25 08:00 Room Air* 0 21 Physical Exam Head eyes ears nose and throat exam I was were nonicteric conjunctiva is pink neck was supple no JVD no lymphadenopathy no carotid bruits lungs are clear to auscultation heart rate regular rate and rhythm abdomen was soft nontender with no pulsatile abdominal masses or bruits lower extremity was palpable femoral pulses weakly palpable pedal pulses she does have some tenderness in the right thigh. US BILAT LOW EXT ART DUPLEX INDICATION: Right leg swelling and pain. cellulitis. Peripheral vascular disease. TECHNIQUE: Grayscale and color doppler and spectral doppler imaging evaluation of the right and left lower extremity arterial system was performed COMPARISON: None available at the time of dictation. FINDINGS: RIGHT LOWER EXTREMITY ARTERIES: Common femoral artery: 241 Cm/s, triphasic Deep femoral artery: 169 Cm/s, triphasic Proximal femoral artery: No flow Mid femoral artery: No flow Distal femoral artery: 76 Cm/s, monophasic Popliteal artery: 39 Cm/s, monophasic Posterior tibial artery: 30 Cm/s, monophasic Dorsalis pedis artery: 56 Cm/s, monophasic LEFT LOWER EXTREMITY ARTERIES: Common femoral artery: 248 Cm/s, triphasic Deep femoral artery: 138 Cm/s, triphasic Proximal femoral artery: No flow Mid femoral artery: No flow Distal femoral artery: 11 Cm/s, monophasic Popliteal artery: 21 Cm/s, monophasic Posterior tibial artery: 26 Cm/s, monophasic Dorsalis pedis artery: No flow REFERENCE VALUES: Normal velocity ranges (in cm/sec) are as follows: MOBILE DEVELOPER 95-140, SFA 75-105, popliteal 54-84, tibial 41-81 cm/sec. Stenosis categories: 1.5-2.0 x normal velocity = 30-49%, 2.0-4.0 x normal velocity = 50- 75%, >4.0 x normal velocity = >75%. IMPRESSION: 1. Occlusion of bilateral superficial femoral arteries. 2. Moderate (50-75 %) stenosis of bilateral common femoral arteries. 3. Diminished flow in bilateral runoff vessels. No flow in left DPA. Labs/Diagnostic Data Labs Test 08/21/25 18:27 08/21/25 06:15 08/19/25 13:57 08/19/25 05:41 Range/Units POC Glucose 160 H 70-106 mg/dl White Blood Count 10.6 4.4-10.8 10^3/uL Red Blood Count 3.86 L 4.0-5.20 10^6/uL Hemoglobin 11.6 L 12.2-16.2 g/dL Hematocrit 34.0 L 36.0-46.0 % Mean Corpuscular Volume 88.0 80.0-100.0 fL Mean Corpuscular Hemoglobin 30.1 28.0-32.0 pg Mean Corpuscular Hemoglobin Concent 34.2 32.0-36.0 g/dL Red Cell Distribution Width 13.4 11.8-14.3 % Platelet Count 380 140-450 10^3/uL Mean Platelet Volume 7.4 6.9-10.8 fL Neutrophils (%) (Auto) 81.3 H 37.0-80.0 % Lymphocytes (%) (Auto) 10.3 10.0-50.0 % Monocytes (%) (Auto) 7.8 0.0-12.0 % Eosinophils (%) (Auto) 0.3 0.0-7.0 % Basophils (%) (Auto) 0.3 0.0-2.0 % Neutrophils # (Auto) 8.6 1.6-8.6 10 ^3/uL Lymphocytes # (Auto) 1.1 0.4-5.4 10 ^3/uL Monocytes # (Auto) 0.8 0-1.3 10 ^3/uL Eosinophils # (Auto) 0 0-0.8 10 ^3/uL Basophils # (Auto) 0 0-0.2 10 ^3/uL Nucleated Red Blood Cells 0.1 % Sodium Level 136 136-145 mmol/L Potassium Level 3.7 3.5-5.1 mmol/L Chloride Level 101 98-107 mmol/L Carbon Dioxide Level 26 20-31 mmol/L Anion Gap 9 5-15 Blood Urea Nitrogen 6 L 9-23 mg/dL Creatinine 0.42 L 0.550-1.02 mg/dL Glomerular Filtration Rate Calc 106 >90 mL/min BUN/Creatinine Ratio 14.3 10.0-20.0 Serum Glucose 210 H 74-106 mg/dL Calcium Level 8.6 L 8.7-10.4 mg/dL Vancomycin Level Trough 10.3 H 5-10 ug/mL Prothrombin Time 11.0 9.3-11.8 sec Prothrombin Time INR 1.04 0.9-1.15 Activated Partial Thromboplast Time 30.8 24.5-34.5 SEC Test 08/18/25 06:40 08/15/25 06:18 08/14/25 10:50 Range/Units Magnesium Level 1.8 1.6-2.6 mg/dL Hemoglobin A1c > 14.0 H <5.7 % A1C Total Bilirubin 0.2 0.2-1.0 mg/dL Aspartate Amino Transferase (AST) 17 13-40 U/L Alanine Aminotransferase (ALT) 18 7-40 U/L Alkaline Phosphatase 142 H 46-116 U/L Total Protein 6.2 5.7-8.2 g/dL Albumin 3.4 3.2-4.8 g/dL Erythrocyte Sedimentation Rate 83 H 0-20 mm/hr Microbiology Date/Time Source Procedure Growth Status 08/15/25 22:49 Blood Blood Culture - Final NO GROWTH AFTER 5 DAYS OF INCUBATION. Complete Assessment The patient with right thigh pain most likely secondary to hematoma. Arterial duplex demonstrated bilateral SFA occlusions. Recommend CT angiogram for further evaluation. Recommend medical management regarding of the pain and antibiotics for the right thigh pain and swelling. Regarding SFA occlusions of the skin be worked up as an outpatient. Stress the importance of quitting smoking. Overall she was noncompliant and does not see a doctor on routine basis Plan/Recommendation The patient with right thigh pain most likely secondary to hematoma. Arterial duplex demonstrated bilateral SFA occlusions. Recommend CT angiogram for further evaluation. Recommend medical management regarding of the pain and antibiotics for the right thigh pain and swelling. Regarding SFA occlusions of the skin be worked up as an outpatient. Stress the importance of quitting smoking. Overall she was noncompliant and does not see a doctor on routine basis Plan discussed with: Patient LUPE ABERNATHY Jr., MD Aug 21, 2025 20:46
[2025-08-22] VITALS (9 sets, daily range): BP systolic 132–174; BP diastolic 75–86; PULSE 78–106; RESP 16–18; TEMP 97.4–99.6; O2SAT 91–95
[2025-08-22] MEDS: IOHEXOL 350 MG/ML 100ML IJ ONE (00:15)
--- NOTE | 2025-08-22 01:57 | DVH ---
Procedure: CT CT ANGIO ABD AORTA W RUN OFF Reason for study/Clinical History: Femoral artery stenosis with leg pain Comparison Study: None CTA LOWER EXTREMITY RUNOFF WITH CONTRAST DATED 08/22/2025 12:41 AM Radiation Dose Information: CT Dose: CTDI volume is 26.64 mGy. Dose-length product is 1854.41 mGy*cm TECHNIQUE: 3D angiographic acquisitions of lower extremity was obtained during the intravenous adm inistration of 140 cc of omnipaque without immediate adverse effect. Post processing, including maxim um intensity projection, was performed images were reviewed on a PACS workstation. 3D postprocessing images were performed on a dedicated workstation and images were reviewed and inter preted for reporting. FINDINGS: Vascular: Abdominal aorta demonstrates normal course and caliber without evidence of stenosis, occlusion, aneur ysm or dissection. Origins of the celiac, superior mesenteric, bilateral renal and inferior mesenteri c arteries are widely patent. Approximately 50% stenosis of the left common iliac artery secondary to combined calcified and noncal cified atheromatous plaque. The right common iliac artery is widely patent with calcified atheromato us plaque noted. Bilateral external and internal iliac arteries demonstrate moderate stenosis, estimated at 50% or les s, secondary to calcified and noncalcified atheromatous plaque. No evidence aneurysm, irregularity or stenosis. Complete occlusion of the proximal bilateral superficial femoral arteries with distal diana nstitution at the level of the distal superficial femoral arteries bilaterally. Bilateral common femo ral, profunda femoral and popliteal arteries patent, without aneurysm, irregularity or stenosis. No a bnormal medial deviation of popliteal arteries. Right anterior Tibial (ROSS), Tibioperoneal Trunk, peroneal, posterior Tibial (VIRGINIA LINE ATTENDANT) arteries are widel y patent without aneurysm, dissection, spasm irregularity or stenosis. Proximal occlusion of the left anterior tibial artery with intermittent occlusion through its extent. Otherwise, the left tibioperoneal trunk, peroneal and posterior tibial arteries are widely patent wi thout aneurysm, dissection, spasm irregularity or stenosis. Nonvascular findings: Liver: The liver is normal in size. No focal lesions. Normal hepatic vascular enhancement. Gallbladder and Biliary Tree: Unremarkable Spleen: Unremarkable Pancreas: The pancreas is normal in appearance without focal lesions or abnormal enhancement. Adrenal Glands: Unremarkable Kidneys: No hydronephrosis. Bladder: Unremarkable Bowel: The stomach is grossly normal in appearance. Retained colorectal stool. Diverticulosis coli w ithout CT evidence of acute diverticulitis. Small bowel and colon are normal in caliber and distribut ion. The appendix is not visualized; however, no secondary findings of acute appendicitis identified. Ascites: Absent Lymphadenopathy: No mesenteric, retroperitoneal or periportal lymphadenopathy. Abdominal Wall and Mesentery: Unremarkable. Pelvic Organs: Unremarkable Musculoskeletal: Poorly organized hypoattenuating near water attenuation collection within the anteri or musculature of the proximal right thigh measures 10.6 x 4.1 cm in the axial plane and approximatel y 15.0 cm craniocaudally, consistent with intramuscular hematoma of uncertain chronicity. No evidence of active extravasation of contrast. Diffuse associated subcutaneous soft tissue edema which extends inferiorly throughout the right lower extremity. Phlegmonous change can not be completely excluded, however, no other discrete organized peripherally enhancing fluid collection to suggest drainable abs cess. No aggressive focal bony lesions, acute fractures or dislocation. IMPRESSION: 1. Complete occlusion of the proximal bilateral superficial femoral arteries with distal reconstituti on at the level of the distal superficial femoral arteries bilaterally. 2. Approximately 50% stenosis of the left common iliac artery secondary to combined calcified and non calcified atheromatous plaque. 3. Bilateral external and internal iliac arteries demonstrate moderate stenosis, estimated at 50% or less, secondary to calcified and noncalcified atheromatous plaque. 4. Proximal occlusion of the left anterior tibial artery with intermittent occlusion through its exte nt. 5. Poorly organized hypoattenuating near water attenuation collection within the anterior musculature of the proximal right thigh measures 10.6 x 4.1 cm in the axial plane and approximately 15.0 cm cran iocaudally, consistent with intramuscular hematoma of uncertain chronicity. No evidence of active ex travasation of contrast. 6. Diffuse associated subcutaneous soft tissue edema which extends inferiorly throughout the right lo wer extremity. Phlegmonous change can not be completely excluded, however, no discrete No aggressive focal bony lesions, acute fractures or dislocation. 7. Diverticulosis coli without CT evidence of acute diverticulitis. 8. Retained colorectal stool.
[2025-08-22 07:26] LABS: Hematocrit 32.7 % (36.0-46.0); Hemoglobin 11.3 g/dL (12.2-16.2); Mean Corpuscular Hemoglobin 30.0 pg (28.0-32.0); Mean Corpuscular Volume 87.3 fL (80.0-100.0); Nucleated Red Blood Cells % 0.0 %
[2025-08-22 07:33] LABS: Chloride 101 mmol/L (98-107); Potassium 3.7 mmol/L (3.5-5.1); Sodium 137 mmol/L (136-145)
[2025-08-22 07:34] LABS: Anion Gap 6 (5-15); Carbon Dioxide 30 mmol/L (20-31)
[2025-08-22 07:35] LABS: Calcium 8.6 mg/dL (8.7-10.4)
[2025-08-22 07:40] LABS: BUN/Creatinine Ratio 14.6 (10.0-20.0); Blood Urea Nitrogen 6 mg/dL (9-23); Glucose 129 mg/dL (74-106)
[2025-08-22] MEDS: ASPirin-EC 81 mg tab PO SCH (10:19)
--- NOTE | 2025-08-22 11:27 | DVHPN2 ---
Progress Note - Dictate Date Seen: Aug 22, 2025 Medical Necessity Reason Pt with a Central, PICC or Fol: No Subjective Patient reports pain with putting any weight on the right lower extremity. vital signs Vital Sign Date Time Temp Pulse Resp B/P (MAP) Pulse Ox O2 Delivery O2 Flow Rate FiO2 08/22/25 05:00 98.2 84 17 149/75 (99) 95 98.2 08/21/25 20:00 Room Air* 0 21 Total Intake and Output 08/21/25 08/21/25 08/22/25 15:00 23:00 07:00 Intake Total 180 ml 200 ml Balance 180 ml 200 ml medications Current Medications Medications Dose Ordered Sig/David Route Start Time Stop Time Status Last Admin Dose Admin Ondansetron HCl 4 mg Q4HP PRN IV 08/14/25 16:15 08/21/25 08:40 4 MG Acetaminophen 650 mg Q6HP PRN PO 08/14/25 16:15 08/18/25 06:46 650 MG Nitroglycerin 0.4 mg Q5MINP PRN SL 08/14/25 16:15 Morphine Sulfate 2 mg Q30M PRN IV 08/14/25 16:15 Diagnostic Test (Pha) 1 strip Q6HR 08/15/25 06:00 08/22/25 05:17 1 STRIP Insulin Human Regular Q6HR SC 08/15/25 06:00 08/22/25 05:21 2 UNITS Dextrose 50 ml UD PRN IV 08/15/25 05:15 Acetaminophen/ Hydrocodone Bitart 1 tab Q4HP PRN PO 08/18/25 14:00 08/22/25 10:19 1 TAB Sodium Chloride 1,000 ml @ 50 mls/hr Q20H IV 08/18/25 15:00 08/20/25 09:15 50 MLS/HR Hydromorphone HCl 0.5 mg Q6HP PRN IV 08/18/25 18:45 08/21/25 20:00 0.5 MG Atorvastatin Calcium 40 mg HS PO 08/19/25 22:00 08/21/25 21:34 40 MG Cephalexin 500 mg Q6HR PO 08/19/25 12:00 08/22/25 05:16 500 MG Lactulose 60 ml DAILY PO 08/20/25 10:00 08/22/25 10:19 60 ML Gabapentin 200 mg TID PO 08/20/25 22:00 08/22/25 05:17 200 MG Insulin Glargine 25 units HS@0000 SC 08/21/25 00:00 08/22/25 00:25 25 UNITS Hydralazine HCl 10 mg Q4HPRN PRN IV 08/21/25 01:15 08/22/25 01:33 10 MG Aspirin 81 mg DAILY PO 08/22/25 10:00 08/22/25 10:19 81 MG objective General Appeara: Well developed, Well nourished, Normal Appearance Head Exam: Normal inspection Neck Exam: Normal inspection, Non-tender, Normal alignment Eye Exam: bilateral eye Normal inspection, bilateral eye PERRL, bilateral eye EOMI Mouth: Normal Inspection Pulmonary/Respiratory: Normal inspection, Normal breath sounds, Lungs clear Cardiovascular/Chest: Normal inspection, Regular rate, Normal Rhythm Abdominal Exam: Normal bowel sounds, Soft Legs: right thigh tenderness 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 it shows multilobulated collection possible hematoma.. elevated wbc is likely reactive from severe PAD and hematoma and uncontrolled DM. It has trended down. blood cx are negative hence will taper antibiotics to oral kelfex for 3 more days to complete 7 days for possible skin cellulitis on thigh associated with hematoma. Discontinued IV Vancomycin per pharmacy [Last dose given on 08/19] Discontinued IV Ceftriaxone 2g daily [Last dose given on 08/19] reviewed CT of right thigh with hip/ knee with contrast showed collection of 10 cm in thigh area. repeated CBC showed normal WBC value s/p Doppler arterial ; s/p Peripheral angiogram shows multivessel disease ;vascular surgery on board she is non compliant blood culture no growth diabetes control smoking cessation counselling prognosis guarded plan discussed with team Total time 50 minutes spent during the encounter Dietary Evaluation Review Recommendations by RD: Dietary education by RD Comments: 1) Initiate MVI @ 1 tb qd 2) Initiate vitamin C @ 500 mg bid and zinc sulfate @ 220 mg qd for 7 days 3) Consider reducing carbohydrates from 60g CCHO to 45g CCHO 2g Na diet 3) Refer to outpatient RD/[facility] for diabetes education and weight management 4) Continue to monitor I&O, labs, and skin integrity Expected Outcomes/Goals: 1) appetite and labs to improve 2) gradual wt loss 3) f/u in 3-5 days Plan discussed with: Patient, Other ZACHARIAH OLSON MD Aug 22, 2025 11:27
--- NOTE | 2025-08-22 16:11 | DVHPN2 ---
Progress Note - Dictate Date Seen: Aug 22, 2025 Medical Necessity Reason Pt with a Central, PICC or Fol: No Subjective Pain in her right leg is improving. Evaluated vascular surgery recommended conservative medical management. Patient had a CT angiogram showed 50% stenosis in the femoral artery and further complete occlusion in the distal superficial arteries. Please see the detailed report. Patient noted to have a hematoma in the right thigh felt causing her leg pain symptoms. Hemoglobin is stable. vital signs Vital Sign Date Time Temp Pulse Resp B/P (MAP) Pulse Ox O2 Delivery O2 Flow Rate FiO2 08/22/25 14:15 89 18 133/82 08/22/25 13:00 97.9 93 97.9 08/22/25 08:00 Room Air* 0 21 Total Intake and Output 08/21/25 08/21/25 08/22/25 15:00 23:00 07:00 Intake Total 180 ml 200 ml Balance 180 ml 200 ml medications Current Medications Medications Dose Ordered Sig/David Route Start Time Stop Time Status Last Admin Dose Admin Ondansetron HCl 4 mg Q4HP PRN IV 08/14/25 16:15 08/22/25 14:15 4 MG Acetaminophen 650 mg Q6HP PRN PO 08/14/25 16:15 08/18/25 06:46 650 MG Nitroglycerin 0.4 mg Q5MINP PRN SL 08/14/25 16:15 Morphine Sulfate 2 mg Q30M PRN IV 08/14/25 16:15 Diagnostic Test (Pha) 1 strip Q6HR 08/15/25 06:00 08/22/25 12:23 1 STRIP Insulin Human Regular Q6HR SC 08/15/25 06:00 08/22/25 12:39 6 UNITS Dextrose 50 ml UD PRN IV 08/15/25 05:15 Acetaminophen/ Hydrocodone Bitart 1 tab Q4HP PRN PO 08/18/25 14:00 08/22/25 10:19 1 TAB Sodium Chloride 1,000 ml @ 50 mls/hr Q20H IV 08/18/25 15:00 08/20/25 09:15 50 MLS/HR Hydromorphone HCl 0.5 mg Q6HP PRN IV 08/18/25 18:45 08/22/25 14:15 0.5 MG Atorvastatin Calcium 40 mg HS PO 08/19/25 22:00 08/21/25 21:34 40 MG Cephalexin 500 mg Q6HR PO 08/19/25 12:00 08/22/25 12:40 500 MG Lactulose 60 ml DAILY PO 08/20/25 10:00 08/22/25 10:19 60 ML Gabapentin 200 mg TID PO 08/20/25 22:00 08/22/25 12:46 200 MG Insulin Glargine 25 units HS@0000 SC 08/21/25 00:00 08/22/25 00:25 25 UNITS Hydralazine HCl 10 mg Q4HPRN PRN IV 08/21/25 01:15 08/22/25 01:33 10 MG Aspirin 81 mg DAILY PO 08/22/25 10:00 08/22/25 10:19 81 MG objective Alert awake oriented x3. HEENT neck supple no JVD. Heart regular rate and rhythm. Lungs fair air movement without rales wheezes. Abdomen soft nontender obese positive bowel sounds. Extremities positive pulses. No erythema noted. No vascular compromise noted. laboratory and microbiology Laboratory Tests 08/22/25 06:51 Test 08/22/25 06:51 Range/Units Serum Glucose 129 H 74-106 mg/dL Assessment/Plan 1. Large right thigh hematoma stable 2. Peripheral vascular disease right lower extremity neuropathic pain status post CT angiogram 3. Leukocytosis likely reactive 4. Uncontrolled Hyperglycemia in the setting of diabetes mellitus type 2 5. Diabetic peripheral neuropathy CT angiogram of the extremities showed complete occlusion of the proximal superficial femoral arteries bilaterally. Has a 50% stenosis in the left common iliac artery. Bilateral external and internal iliac artery demonstrate 50% or less stenosis. There is a 10 x 4 by 15 cm hematoma noted. I will DC anticoagulation including aspirin and Lovenox for DVT prophylaxis due to hematoma. We will encourage physical therapy ambulation and pain management. If no further interventions or workup required for vascular surgery then she could be transferred to a retirement facility. Discussed with the patient and nurse regarding care plan. Dietary Evaluation Review Recommendations by RD: Dietary education by RD Comments: 1) Initiate MVI @ 1 tb qd 2) Initiate vitamin C @ 500 mg bid and zinc sulfate @ 220 mg qd for 7 days 3) Consider reducing carbohydrates from 60g CCHO to 45g CCHO 2g Na diet 3) Refer to outpatient RD/[facility] for diabetes education and weight management 4) Continue to monitor I&O, labs, and skin integrity Expected Outcomes/Goals: 1) appetite and labs to improve 2) gradual wt loss 3) f/u in 3-5 days Plan discussed with: Patient BRENDA ROSE MD Aug 22, 2025 16:11
[2025-08-22] MEDS: GABAPENTIN 300 MG CAP PO SCH (21:13)
[2025-08-23] VITALS (7 sets, daily range): BP systolic 114–154; BP diastolic 72–89; PULSE 80–98; RESP 16–18; TEMP 97.4–99.1; O2SAT 90–96
--- NOTE | 2025-08-23 10:16 | DVHPN2 ---
Progress Note - Dictate Date Seen: Aug 23, 2025 Medical Necessity Reason Pt with a Central, PICC or Fol: No Subjective Patient reports pain with putting any weight on the right lower extremity. CT angiogram showed multivessel disease in the multiple arteries in the lower extremity vital signs Vital Sign Date Time Temp Pulse Resp B/P (MAP) Pulse Ox O2 Delivery O2 Flow Rate FiO2 08/23/25 09:00 98.4 80 16 128/72 (90) 96 98.4 08/22/25 20:00 Room Air* 0 21 Total Intake and Output 08/22/25 08/22/25 08/23/25 15:00 23:00 07:00 Intake Total 590 ml 500 ml Balance 590 ml 500 ml medications Current Medications Medications Dose Ordered Sig/David Route Start Time Stop Time Status Last Admin Dose Admin Ondansetron HCl 4 mg Q4HP PRN IV 08/14/25 16:15 08/22/25 14:15 4 MG Acetaminophen 650 mg Q6HP PRN PO 08/14/25 16:15 08/18/25 06:46 650 MG Nitroglycerin 0.4 mg Q5MINP PRN SL 08/14/25 16:15 Morphine Sulfate 2 mg Q30M PRN IV 08/14/25 16:15 Diagnostic Test (Pha) 1 strip Q6HR 08/15/25 06:00 08/23/25 05:34 1 STRIP Insulin Human Regular Q6HR SC 08/15/25 06:00 08/23/25 05:36 3 UNITS Dextrose 50 ml UD PRN IV 08/15/25 05:15 Acetaminophen/ Hydrocodone Bitart 1 tab Q4HP PRN PO 08/18/25 14:00 08/23/25 05:35 1 TAB Sodium Chloride 1,000 ml @ 50 mls/hr Q20H IV 08/18/25 15:00 08/22/25 17:43 50 MLS/HR Hydromorphone HCl 0.5 mg Q6HP PRN IV 08/18/25 18:45 08/22/25 14:15 0.5 MG Atorvastatin Calcium 40 mg HS PO 08/19/25 22:00 08/22/25 21:14 40 MG Cephalexin 500 mg Q6HR PO 08/19/25 12:00 08/23/25 05:34 500 MG Lactulose 60 ml DAILY PO 08/20/25 10:00 08/23/25 09:41 60 ML Insulin Glargine 25 units HS@0000 SC 08/21/25 00:00 08/23/25 00:41 25 UNITS Hydralazine HCl 10 mg Q4HPRN PRN IV 08/21/25 01:15 08/22/25 01:33 10 MG Gabapentin 300 mg TID PO 08/22/25 22:00 08/23/25 05:34 300 MG objective General Appeara: Well developed, Well nourished, Normal Appearance Head Exam: Normal inspection Neck Exam: Normal inspection, Non-tender, Normal alignment Eye Exam: bilateral eye Normal inspection, bilateral eye PERRL, bilateral eye EOMI Mouth: Normal Inspection Pulmonary/Respiratory: Normal inspection, Normal breath sounds, Lungs clear Cardiovascular/Chest: Normal inspection, Regular rate, Normal Rhythm Abdominal Exam: Normal bowel sounds, Soft Legs: right thigh tenderness 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 it shows multilobulated collection possible hematoma.. awaiting for recommendations from ORtho elevated wbc is likely reactive from severe PAD and hematoma and uncontrolled DM. It has trended down. blood cx are negative hence will taper antibiotics to oral kelfex for 3 more days to complete 7 days for possible skin cellulitis on thigh associated with hematoma. Discontinued IV Vancomycin per pharmacy [Last dose given on 08/19] Discontinued IV Ceftriaxone 2g daily [Last dose given on 08/19] reviewed CT of right thigh with hip/ knee with contrast showed collection of 10 cm in thigh area. repeated CBC showed normal WBC value s/p Doppler arterial ; s/p Peripheral angiogram shows multivessel disease ;vascular surgery on board she is non compliant blood culture no growth diabetes control smoking cessation counselling more than 4 minutes prognosis guarded plan discussed with team Total time 50 minutes spent during the encounter Dietary Evaluation Review Recommendations by RD: Dietary education by RD Comments: 1) Initiate MVI @ 1 tb qd 2) Initiate vitamin C @ 500 mg bid and zinc sulfate @ 220 mg qd for 7 days 3) Consider reducing carbohydrates from 60g CCHO to 45g CCHO 2g Na diet 3) Refer to outpatient RD/[facility] for diabetes education and weight management 4) Continue to monitor I&O, labs, and skin integrity Expected Outcomes/Goals: 1) appetite and labs to improve 2) gradual wt loss 3) f/u in 3-5 days Plan discussed with: Patient ZACHARIAH OLSON MD Aug 23, 2025 10:16
[2025-08-23] MEDS: OXYCODONE W/ ACETAMINOPHEN 5/325MG TABLET PO PRN (14:26)
[2025-08-23] MEDS: SENNA 8.6 MG TAB PO SCH (21:25)
[2025-08-24] VITALS (7 sets, daily range): BP systolic 128–173; BP diastolic 68–96; PULSE 83–101; RESP 16–18; TEMP 98.2–99.1; O2SAT 90–94
--- NOTE | 2025-08-24 11:28 | DVHPN2 ---
Progress Note - Dictate Date Seen: Aug 24, 2025 Medical Necessity Reason Pt with a Central, PICC or Fol: No Subjective Patient reports pain with putting any weight on the right lower extremity. no signs of cellulitis CT angiogram showed multivessel disease in the multiple arteries in the lower extremity vital signs Vital Sign Date Time Temp Pulse Resp B/P (MAP) Pulse Ox O2 Delivery O2 Flow Rate FiO2 08/24/25 08:31 99.1 83 16 152/75 (100) 91 99.1 08/24/25 08:00 Room Air* 0 21 Total Intake and Output 08/23/25 08/23/25 08/24/25 15:00 23:00 07:00 Intake Total 520 ml 400 ml Balance 520 ml 400 ml medications Current Medications Medications Dose Ordered Sig/David Route Start Time Stop Time Status Last Admin Dose Admin Ondansetron HCl 4 mg Q4HP PRN IV 08/14/25 16:15 08/23/25 17:56 4 MG Acetaminophen 650 mg Q6HP PRN PO 08/14/25 16:15 08/18/25 06:46 650 MG Nitroglycerin 0.4 mg Q5MINP PRN SL 08/14/25 16:15 Morphine Sulfate 2 mg Q30M PRN IV 08/14/25 16:15 Diagnostic Test (Pha) 1 strip Q6HR 08/15/25 06:00 08/24/25 05:50 1 STRIP Insulin Human Regular Q6HR SC 08/15/25 06:00 08/24/25 05:50 3 UNITS Dextrose 50 ml UD PRN IV 08/15/25 05:15 Sodium Chloride 1,000 ml @ 50 mls/hr Q20H IV 08/18/25 15:00 08/23/25 14:27 50 MLS/HR Hydromorphone HCl 0.5 mg Q6HP PRN IV 08/18/25 18:45 08/23/25 17:57 0.5 MG Atorvastatin Calcium 40 mg HS PO 08/19/25 22:00 08/23/25 21:25 40 MG Cephalexin 500 mg Q6HR PO 08/19/25 12:00 08/24/25 05:26 500 MG Lactulose 60 ml DAILY PO 08/20/25 10:00 08/24/25 09:36 60 ML Insulin Glargine 25 units HS@0000 SC 08/21/25 00:00 08/24/25 00:00 25 UNITS Hydralazine HCl 10 mg Q4HPRN PRN IV 08/21/25 01:15 08/24/25 00:42 10 MG Gabapentin 300 mg TID PO 08/22/25 22:00 08/24/25 05:27 300 MG Oxycodone HCl 10 mg Q12HR PO 08/23/25 22:00 08/23/25 21:27 10 MG Oxycodone/ Acetaminophen 1 tab Q4HP PRN PO 08/23/25 12:45 08/23/25 14:26 1 TAB Sennosides 8.6 mg HS PO 08/23/25 22:00 08/23/25 21:25 8.6 MG objective General Appeara: Well developed, Well nourished, Normal Appearance Head Exam: Normal inspection Neck Exam: Normal inspection, Non-tender, Normal alignment Eye Exam: bilateral eye Normal inspection, bilateral eye PERRL, bilateral eye EOMI Mouth: Normal Inspection Pulmonary/Respiratory: Normal inspection, Normal breath sounds, Lungs clear Cardiovascular/Chest: Normal inspection, Regular rate, Normal Rhythm Abdominal Exam: Normal bowel sounds, Soft Legs: right thigh tenderness 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 it shows multilobulated collection possible hematoma.. elevated wbc is likely reactive from severe PAD and hematoma and uncontrolled DM. It has trended down. blood cx are negative hence will taper antibiotics to oral kelfex for 3 more days to complete 7 days for possible skin cellulitis on thigh associated with hematoma. Discontinued IV Vancomycin per pharmacy [Last dose given on 08/19] Discontinued IV Ceftriaxone 2g daily [Last dose given on 08/19] reviewed CT of right thigh with hip/ knee with contrast showed collection of 10 cm in thigh area. repeated CBC showed normal WBC value s/p Doppler arterial ; s/p Peripheral angiogram shows multivessel disease ;vascular surgery on board not on anticoagulation due to hematoma and leg pain. blood culture no growth discussed about diet / diabetes follow up with PCP as outpt follow up with Vascular as outpt for PVD. smoking cessation plan discussed with team Total time 50 minutes spent during the encounter Dietary Evaluation Review Recommendations by RD: Dietary education by RD Comments: 1) Initiate MVI @ 1 tb qd 2) Initiate vitamin C @ 500 mg bid and zinc sulfate @ 220 mg qd for 7 days 3) Consider reducing carbohydrates from 60g CCHO to 45g CCHO 2g Na diet 3) Refer to outpatient RD/[facility] for diabetes education and weight management 4) Continue to monitor I&O, labs, and skin integrity Expected Outcomes/Goals: 1) appetite and labs to improve 2) gradual wt loss 3) f/u in 3-5 days Plan discussed with: Patient ZACHARIAH OLSON MD Aug 24, 2025 11:28
--- NOTE | 2025-08-24 15:00 | DVHPN2 ---
Progress Note - Dictate Date Seen: Aug 23, 2025 Medical Necessity Reason Pt with a Central, PICC or Fol: No Subjective Pain in her right leg is improving. She is scheduled to go to assisted facility today. Prefers growing to [facility] given her is there. vital signs Vital Sign Date Time Temp Pulse Resp B/P (MAP) Pulse Ox O2 Delivery O2 Flow Rate FiO2 08/24/25 13:00 98.3 86 18 165/83 (110) 94 98.3 08/24/25 08:00 Room Air* 0 21 Total Intake and Output 08/23/25 08/23/25 08/24/25 15:00 23:00 07:00 Intake Total 520 ml 400 ml Balance 520 ml 400 ml medications Current Medications Medications Dose Ordered Sig/David Route Start Time Stop Time Status Last Admin Dose Admin Ondansetron HCl 4 mg Q4HP PRN IV 08/14/25 16:15 08/23/25 17:56 4 MG Acetaminophen 650 mg Q6HP PRN PO 08/14/25 16:15 08/18/25 06:46 650 MG Nitroglycerin 0.4 mg Q5MINP PRN SL 08/14/25 16:15 Morphine Sulfate 2 mg Q30M PRN IV 08/14/25 16:15 Diagnostic Test (Pha) 1 strip Q6HR 08/15/25 06:00 08/24/25 12:20 1 STRIP Insulin Human Regular Q6HR SC 08/15/25 06:00 08/24/25 12:20 6 UNITS Dextrose 50 ml UD PRN IV 08/15/25 05:15 Sodium Chloride 1,000 ml @ 50 mls/hr Q20H IV 08/18/25 15:00 08/24/25 13:42 50 MLS/HR Hydromorphone HCl 0.5 mg Q6HP PRN IV 08/18/25 18:45 08/23/25 17:57 0.5 MG Atorvastatin Calcium 40 mg HS PO 08/19/25 22:00 08/23/25 21:25 40 MG Cephalexin 500 mg Q6HR PO 08/19/25 12:00 08/24/25 12:11 500 MG Lactulose 60 ml DAILY PO 08/20/25 10:00 08/24/25 09:36 60 ML Insulin Glargine 25 units HS@0000 SC 08/21/25 00:00 08/24/25 00:00 25 UNITS Hydralazine HCl 10 mg Q4HPRN PRN IV 08/21/25 01:15 08/24/25 12:12 10 MG Gabapentin 300 mg TID PO 08/22/25 22:00 08/24/25 13:40 300 MG Oxycodone HCl 10 mg Q12HR PO 08/23/25 22:00 08/23/25 21:27 10 MG Oxycodone/ Acetaminophen 1 tab Q4HP PRN PO 08/23/25 12:45 08/23/25 14:26 1 TAB Sennosides 8.6 mg HS PO 08/23/25 22:00 08/23/25 21:25 8.6 MG objective Alert awake oriented x3. HEENT neck supple no JVD. Heart regular rate and rhythm. Lungs fair air movement without rales wheezes. Abdomen soft nontender obese positive bowel sounds. Extremities positive pulses. No erythema noted. No vascular compromise noted. laboratory and microbiology Laboratory Tests 08/22/25 06:51 Test 08/22/25 06:51 Range/Units Serum Glucose 129 H 74-106 mg/dL Assessment/Plan 1. Large right thigh hematoma stable 2. Peripheral vascular disease right lower extremity neuropathic pain status post CT angiogram 3. Leukocytosis likely reactive 4. Uncontrolled Hyperglycemia in the setting of diabetes mellitus type 2 5. Diabetic peripheral neuropathy Clinically stable. Participating with physical therapy able to put weight on the leg but complains of pain. [place] secondary to large hematoma which I have talked to the patient at length about pain and expected recovery. Patient is advised to completely avoid smoking. Given she is clinically stable we will prepare her for her go to a assisted facility rather than home due to her deconditioning and pain. Dietary Evaluation Review Recommendations by RD: Dietary education by RD Comments: 1) Initiate MVI @ 1 tb qd 2) Initiate vitamin C @ 500 mg bid and zinc sulfate @ 220 mg qd for 7 days 3) Consider reducing carbohydrates from 60g CCHO to 45g CCHO 2g Na diet 3) Refer to outpatient RD/[facility] for diabetes education and weight management 4) Continue to monitor I&O, labs, and skin integrity Expected Outcomes/Goals: 1) appetite and labs to improve 2) gradual wt loss 3) f/u in 3-5 days Plan discussed with: Patient BRENDA ROSE MD Aug 24, 2025 15:00
--- NOTE | 2025-08-24 15:02 | DVHDS2 ---
Discharge Summary Date of Admission Aug 14, 2025 at 16:06 Date of Discharge: Aug 23, 2025 Labs/Diagnostic Data: Laboratory Results Test 08/24/25 11:57 08/22/25 06:51 08/19/25 13:57 08/19/25 05:41 POC Glucose 204 mg/dl (70-106) White Blood Count 8.0 10^3/uL (4.4-10.8) Red Blood Count 3.75 10^6/uL (4.0-5.20) Hemoglobin 11.3 g/dL (12.2-16.2) Hematocrit 32.7 % (36.0-46.0) Mean Corpuscular Volume 87.3 fL (80.0-100.0) Mean Corpuscular Hemoglobin 30.0 pg (28.0-32.0) Mean Corpuscular Hemoglobin Concent 34.4 g/dL (32.0-36.0) Red Cell Distribution Width 13.2 % (11.8-14.3) Platelet Count 396 10^3/uL (140-450) Mean Platelet Volume 7.3 fL (6.9-10.8) Neutrophils (%) (Auto) 75.7 % (37.0-80.0) Lymphocytes (%) (Auto) 14.2 % (10.0-50.0) Monocytes (%) (Auto) 9.2 % (0.0-12.0) Eosinophils (%) (Auto) 0.6 % (0.0-7.0) Basophils (%) (Auto) 0.3 % (0.0-2.0) Neutrophils # (Auto) 6.0 10 ^3/uL (1.6-8.6) Lymphocytes # (Auto) 1.1 10 ^3/uL (0.4-5.4) Monocytes # (Auto) 0.7 10 ^3/uL (0-1.3) Eosinophils # (Auto) 0 10 ^3/uL (0-0.8) Basophils # (Auto) 0 10 ^3/uL (0-0.2) Nucleated Red Blood Cells 0.0 % Sodium Level 137 mmol/L (136-145) Potassium Level 3.7 mmol/L (3.5-5.1) Chloride Level 101 mmol/L (98-107) Carbon Dioxide Level 30 mmol/L (20-31) Anion Gap 6 (5-15) Blood Urea Nitrogen 6 mg/dL (9-23) Creatinine 0.41 mg/dL (0.550-1.02) Glomerular Filtration Rate Calc 106 mL/min (>90) BUN/Creatinine Ratio 14.6 (10.0-20.0) Serum Glucose 129 mg/dL (74-106) Calcium Level 8.6 mg/dL (8.7-10.4) Vancomycin Level Trough 10.3 ug/mL (5-10) Prothrombin Time 11.0 sec (9.3-11.8) Prothrombin Time INR 1.04 (0.9-1.15) Activated Partial Thromboplast Time 30.8 SEC (24.5-34.5) Test 08/18/25 06:40 08/15/25 06:18 08/14/25 10:50 Magnesium Level 1.8 mg/dL (1.6-2.6) Hemoglobin A1c > 14.0 % A1C (<5.7) Total Bilirubin 0.2 mg/dL (0.2-1.0) Aspartate Amino Transferase (AST) 17 U/L (13-40) Alanine Aminotransferase (ALT) 18 U/L (7-40) Alkaline Phosphatase 142 U/L (46-116) Total Protein 6.2 g/dL (5.7-8.2) Albumin 3.4 g/dL (3.2-4.8) Erythrocyte Sedimentation Rate 83 mm/hr (0-20) Other Laboratory Tests 08/22/25 06:51 Brief Hx & Hospital Course: Mrs. Denia Pena 70 yo female with a history of DM presents with a chief complaint of right lower extremity pain. Pt states she has been having R inner thigh pain since 08/04. Pt states she has been having pain with ambulating on the RLE , noting the pain /10 with ambulating and lessened while sitting. Pt states she came to the hospital due to pain increasing so much, she has been unable to walk and has been have frequent falls with no associated loss of consciousness. Pt states she had multiple falls on 08/04 and came to [facility] 2x days later and was evaluated. Pt states she was evaluated and had RLE Ultrasound on the proximal medial right thigh which revealed a superficial vein with sluggish but patent flow. Patient has been on oral antibiotics with no improvement of right inner thigh pain and swelling with noted erythema. Patient denies fevers, chills, nausea, vomiting. Patient admitted for further evaluation and treatment. Consults/Reason for consult Assessment The patient with right thigh pain most likely secondary to hematoma. Arterial duplex demonstrated bilateral SFA occlusions. Recommend CT angiogram for further evaluation. Recommend medical management regarding of the pain and antibiotics for the right thigh pain and swelling. Regarding SFA occlusions of the skin be worked up as an outpatient. Stress the importance of quitting smoking. Overall she was noncompliant and does not see a doctor on routine basis Plan/Recommendation The patient with right thigh pain most likely secondary to hematoma. Arterial duplex demonstrated bilateral SFA occlusions. Recommend CT angiogram for further evaluation. Recommend medical management regarding of the pain and antibiotics for the right thigh pain and swelling. Regarding SFA occlusions of the skin be worked up as an outpatient. Stress the importance of quitting smoking. Overall she was noncompliant and does not see a doctor on routine basis Plan discussed with: Patient LUPE ABERNATHY Jr., MD Aug 21, 2025 20:46 Operations or Procedures Conclusion Technically difficult study. Difficult acoustic windows. LV enlargement. Left atrial enlargement. Mild mitral annular calcification. Mild aortic sclerosis. Left ventricular function appears preserved. EF of 55% with normal RV function. Dopplers unremarkable. No pericardial effusion masses or vegetations. SIGNED BY: PIO STEPHENS Sr., MD SIGNED DATE/TIME: 08/19/25 4452 Condition at Discharge: Stable Final Diagnosis/Problems List Right thigh large hematoma with the pain, peripheral arterial disease, diabetes mellitus type 2 poorly controlled, physical deconditioning Discharge Disposition: Halfway Facility Discharge Instruct/Medications Diet: Consistent carbohydrate, Cardiac 2g Na,low cholest Activity: No Restrictions, As Tolerated Activity comment: With a walker/assistance Follow Up/Referral: Dr. Jo vascular surgeon for further evaluation and management of thigh hematoma/peripheral arterial disease in 3-4 weeks Medications: See transfer med reconciliation list Scheduled Sulfamethoxazole W/Trimethopri (Bactrim Ds Tablet), 1 TAB PO BID Discharge Statement: "Patient was advised to return to the ER or call 911 if any headaches, dizziness, shortness of breath, chest pain, abdominal pain, bleeding, fevers, or worsening of medical condition. Patient was counseled about treatment plan, medications, possible side effects, patientverbalized understanding. All questions were answered to the best of my ability. This discharge took greater then 30 minutes in planning, reviewing documentation, counseling the patient, and discussing with other team members." ASSESSMENT ASSESSMENT Assessment Right thigh large hematoma with the pain, peripheral arterial disease, diabetes mellitus type 2 poorly controlled, physical deconditioning BRENDA ROSE MD Aug 24, 2025 15:02
== END 2025-08-24 18:29 | DRG 605 ==
LOC: ER 10:07 → OVERFLOW 16:06 → WEST WING 23:43 → TELE-WESTW 08-18 17:17
PROVIDERS: ADMIT Internal Medicine; ATTEND Internal Medicine
DX: S70.11XA Contusion of right thigh, initial encounter (principal); L03.115 Cellulitis of right lower limb; R65.10 Systemic inflammatory response syndrome (SIRS) of non-infectious origin without acute organ dysfunction; I70.92 Chronic total occlusion of artery of the extremities; L02.415 Cutaneous abscess of right lower limb; E11.65 Type 2 diabetes mellitus with hyperglycemia; E66.9 Obesity, unspecified; Z68.34 Body mass index [BMI] 34.0-34.9, adult; I10 Essential (primary) hypertension; E11.42 Type 2 diabetes mellitus with diabetic polyneuropathy; F17.210 Nicotine dependence, cigarettes, uncomplicated; I34.81 Nonrheumatic mitral (valve) annulus calcification; I70.8 Atherosclerosis of other arteries; E11.51 Type 2 diabetes mellitus with diabetic peripheral angiopathy without gangrene; X58.XXXA Exposure to other specified factors, initial encounter; Z91.199 Patient's noncompliance with other medical treatment and regimen due to unspecified reason; Z79.84 Long term (current) use of oral hypoglycemic drugs; Y93.89 Activity, other specified; Y92.89 Other specified places as the place of occurrence of the external cause; Y99.8 Other external cause status; Z79.899 Other long term (current) drug therapy
CPT/HCPCS: 36415; 73700; 73718; 75635; 80048; 80053; 80202; 82565; 82962; 83036; 83735; 85025; 85610; 85652; 85730; 87040; 93306; 93925; 93971; 97110; 97163; 97530; G0378; J1815; J1885; J2405

== ENCOUNTER 2025-10-01 17:04 | Emergency (ER) | payer MEDICARE, OTHER ==
[~2025-10-01] VITALS: Ht 165.1 cm; Wt 82.0 kg
--- NOTE | 2025-10-01 20:50 | ED.PDOC ---
History of Present Illness(SKN HPI Comments 70-year-old female who is brought in by ambulance from [facility] for chief complaint of nonhealing wound to right, medial thigh x 2 months. Patient reports some being evaluated and place on antibiotics for wound in the past, with no signs of wound showing any improvement of healing. She denies having any fever, chills, shortness of breath, further acute symptoms. Chief Complaint: Wound Check Time Seen by MD: 20:30 History of Present Illness: Nurses Notes, Chief Program Officer Notes, Medications, Allergies Allergies: Coded Allergies: NO KNOWN ALLERGIES (Unverified , 08/04/25) Home Meds Active Scripts Cephalexin (KEFLEX CAPSULE) 250 Mg Cp, 250 MG PO QID for 10 Days, #40 TAB Prov:WILDA WISE MD 10/01/25 Mupirocin Calcium (Topical) (MUPIROCIN) 2 % Cre, 2 % EX BID for 14 Days, #30 CRE Prov:WILDA WISE MD 10/01/25 Sulfamethoxazole W/Trimethopri (Bactrim Ds Tablet) 1 Tab Tb, 1 TAB PO BID for 5 Days, #10 TAB Prov:GEORGE REED PAC 08/04/25 Information Source: Patient, Emergency Med Personnel Mode of Arrival: EMS Severity: Moderate Timing: Months Duration: Since onset Prehospital treatment: 12 Lead EKG, Pantry Steward/Stewardess Past Medical History PAST MEDICAL HISTORY: DM Surgical History: Denies all surgeries TECHNICAL SERVICES LIBRARIAN History: Unknown Family History Family History: Reviewed,noncontributory to illness Social History Smoker: Cigarettes Alcohol: Denies ETOH Use Drugs: Denies Drug Use Lives In: Home All Other Systems: Reviewed and Negative (Comprehensive review of systems are negative unless otherwise stated in HPI) Physical Exam General Appearance: No Apparent Distress, Obese HEENT: Normal ENT Inspection, Pharynx Normal, TMs Normal Neck: Full Range of Motion, Non-Tender, Normal, Normal Inspection Respiratory: Chest Non-Tender, Lungs Clear, No Accessory Muscle Use, No Respiratory Distress, Normal Breath Sounds Cardiovascular: No Edema, No JVD, No Murmur, No Gallop, Normal Peripheral Pulses, Regular Rate/Rhythm Breast Exam: Deferred Gastrointestinal: No Organomegaly, Non Tender, No Pulsatile Mass, Normal Bowel Sounds, Soft Genitalia: Deferred Pelvic: Deferred Rectal: Deferred Extremities: No calf tenderness, Normal capillary refill, Normal inspection, Normal range of motion, Non-tender, No pedal edema Musculoskeletal : Apperance: Normal Neurologic: Alert, legal mediator II-XII nml as Tested, No Motor Deficits, Normal Affect, Normal Mood, No Sensory Deficits Cerebellar Function: Normal Reflexes: Normal Skin: Dry, Normal Color, Warm, Wounds (2.5 cm healing wound to proximal, medial side of right thigh, with surrounding skin erythema) Lymphatic: No Adenopathy Was a procedure done? Was a procedure done?: No Differential Diagnosis (INTG) Differential Diagnosis: Cellulitis, Psoriasis, Other (Diabetic wound) X-Ray, Labs, Meds, VS Vital Signs Date Time Temp Pulse Resp B/P (MAP) Pulse Ox O2 Delivery O2 Flow Rate FiO2 10/02/25 03:00 91 13 10/02/25 01:00 24 95 Room Air* 0 21 10/02/25 00:58 91 24 143/69 (93) 95 10/01/25 23:03 96 Room Air* 0 21 10/01/25 22:50 97.4 89 16 124/76 (92) 95 97.4 10/01/25 17:14 97.2 94 12 142/96 96 97.2 Lab Test 10/01/25 20:52 10/01/25 20:50 Range/Units White Blood Count 6.3 4.4-10.8 10^3/uL Red Blood Count 4.17 4.0-5.20 10^6/uL Hemoglobin 11.7 L 12.2-16.2 g/dL Hematocrit 35.2 L 36.0-46.0 % Mean Corpuscular Volume 84.4 80.0-100.0 fL Mean Corpuscular Hemoglobin 27.9 L 28.0-32.0 pg Mean Corpuscular Hemoglobin Concent 33.1 32.0-36.0 g/dL Red Cell Distribution Width 15.4 H 11.8-14.3 % Platelet Count 435 140-450 10^3/uL Mean Platelet Volume 6.8 L 6.9-10.8 fL Neutrophils (%) (Auto) 60.5 37.0-80.0 % Lymphocytes (%) (Auto) 27.7 10.0-50.0 % Monocytes (%) (Auto) 10.6 0.0-12.0 % Eosinophils (%) (Auto) 0.7 0.0-7.0 % Basophils (%) (Auto) 0.5 0.0-2.0 % Neutrophils # (Auto) 3.8 1.6-8.6 10 ^3/uL Lymphocytes # (Auto) 1.8 0.4-5.4 10 ^3/uL Monocytes # (Auto) 0.7 0-1.3 10 ^3/uL Eosinophils # (Auto) 0 0-0.8 10 ^3/uL Basophils # (Auto) 0 0-0.2 10 ^3/uL Nucleated Red Blood Cells 0.0 % Sodium Level 134 L 136-145 mmol/L Potassium Level 4.2 3.5-5.1 mmol/L Chloride Level 100 98-107 mmol/L Carbon Dioxide Level 23 20-31 mmol/L Anion Gap 11 5-15 Blood Urea Nitrogen 12 9-23 mg/dL Creatinine 0.62 0.550-1.02 mg/dL Glomerular Filtration Rate Calc 96 >90 mL/min BUN/Creatinine Ratio 19.4 10.0-20.0 Serum Glucose 201 H 74-106 mg/dL Calcium Level 10.0 8.7-10.4 mg/dL Total Bilirubin 0.4 0.2-1.0 mg/dL Aspartate Amino Transferase (AST) 22 13-40 U/L Alanine Aminotransferase (ALT) 28 7-40 U/L Alkaline Phosphatase 119 H 46-116 U/L Total Protein 7.1 5.7-8.2 g/dL Albumin 3.9 3.2-4.8 g/dL Lactic Acid Level 1.1 0.4-2.0 mmol/L Current Medications Medications (Trade) Dose Ordered Sig/David Route Start Time Stop Time Status Last Admin Acetaminophen/ Hydrocodone Bitart ([place] 5/325MG Tab) 2 tab ONCE ONCE PO 10/01/25 23:00 10/01/25 23:01 DC 10/01/25 22:[address] [address] Ph: [phone] DIAGNOSTIC IMAGING Diagnostic Imaging Report : [id number] Signed PATIENT: DEISI GUZMAN ACCT: [id number] UNIT: [id number] : 1955 LOC: ER ROOM / BED: / AGE / SEX: 70 / F ADM STATUS: REG ER SERVICE 36 ORDERING PHYSICIAN: WILDA WISE MD PROCEDURE(s): RLDVT - RT Lower DVT REASON: pain / swelling ORDER NUMBER(s): [id number], ACCESSION NUMBER(s): [id number] Right lower extremity venous duplex Clinical History: pain / swelling Comparison: US BILAT LOW EXT ART DUPLEX on DOS: 08/16/25, US RT LOWER DVT on DOS: 08/14/25, US RIGHT LOWER EXTREMITY ULTRASOU on DOS: 08/04/25 Technique: Duplex Doppler evaluation of the deep venous system of the right lower extremity from the common femoral vein to the popliteal vein including color Doppler and spectral/pulsed waveform analysis was performed. Findings: The common femoral vein demonstrates appropriate compressibility and waveform variability. There is compressibility/patency of the great saphenous vein at the proximal thigh. The femoral vein demonstrates appropriate compressibility and waveform variability. The deep femoral vein demonstrates appropriate compressibility and waveform variability. The popliteal vein demonstrates appropriate compressibility and waveform variability. There is normal compressibility at the tibioperoneal trunk. Mildly prominent lymph node noted adjacent to the superficial femoral vein measuring 3.2 cm with no Suspect imaging features, likely reactive. Impression: No right femoropopliteal venous thrombosis. ATED BY: BARRY FERGUSON MD DICTATED DATE/TIME: 10/01/252146 SIGNED BY: BARRY FERGUSON MD SIGNED DATE/TIME: 10/01/252146 CC: Time of 1ST Reevaluation: 21:00 Reevaluation 1ST: Unchanged Patient Education/Counseling: Diagnosis, Treatment Family Education/Counseling: No Family Present SEPSIS Sepsis Screen Date sepsis recognized/suspect: Oct 01, 2025 Time Sepsis recognized/suspect: 1718 Recent Procedure: No On Antibiotic Therapy: No Respiratory Rate >20: No Heart Rate >90: No Temp<36 C (96.8 F) or >38.3 C: No SBP <90 or MAP <65 mmHG: No New Acute Mental Status Change: No Is the patient on CPAP, BIPAP,: No Physician Orders Blood Culture (10/01/25 20:37) Rt Lower Dvt (10/01/25 20:37) * Land Lease Information Clerk Consult (10/02/25 ) Vital Signs Date Time Temp Pulse Resp B/P (MAP) Pulse Ox O2 Delivery O2 Flow Rate FiO2 10/02/25 03:00 91 13 10/02/25 01:00 24 95 Room Air* 0 21 10/02/25 00:58 91 24 143/69 (93) 95 10/01/25 23:03 96 Room Air* 0 21 10/01/25 22:50 97.4 89 16 124/76 (92) 95 97.4 10/01/25 17:14 97.2 94 12 142/96 96 97.2 Laboratory Tests Test 10/01/25 20:50 10/01/25 20:52 Lactic Acid Level 1.1 mmol/L (0.4-2.0) White Blood Count 6.3 10^3/uL (4.4-10.8) Medications Medications Dose Ordered Sig/David Route Start Time Stop Time Status Last Admin Dose Admin Acetaminophen/ Hydrocodone Bitart 2 tab ONCE ONCE PO 10/01/25 23:00 10/01/25 23:01 DC 10/01/25 22:56 Departure 1 Departure Time of Disposition: 23:00 Impression: Primary Impression: Cellulitis of right thigh Additional Impression: Right leg pain Disposition: 01 HOME / SELF CARE / HOMELESS Condition: Stable e-Prescriptions Cephalexin (KEFLEX CAPSULE) 250 Mg Cp 250 MG PO QID for 10 Days, #40 TAB Prov: WILDA WISE MD 10/01/25 Mupirocin Calcium (Topical) (MUPIROCIN) 2 % Cre 2 % EX BID for 14 Days, #30 CRE Prov: WILDA WISE MD 10/01/25 Discharged With: Self Critical Care Note Critical Care Time?: No Stability Stability form required: No Heart Score Heart Score: Heart Score Response (Comments) Value History N/A 0 EKG N/A 0 Age N/A 0 Risk Factors N/A 0 Troponin N/A 0 Total 0 I personally scribed for WILDA WISE MD ([email or web address]) on 10/01/25 at 20:50. Electronically submitted by Troy Mcfarlane ([email or web address]). I personally scribed for WILDA WISE MD ([email or web address]) on 10/01/25 at 23:22. Electronically submitted by Troy Mcfarlane ([email or web address]). WILDA WISE MD Oct 01, 2025 20:50
[2025-10-01 21:06] LABS: Hematocrit 35.2 % (36.0-46.0); Hemoglobin 11.7 g/dL (12.2-16.2); Mean Corpuscular Hemoglobin 27.9 pg (28.0-32.0); Mean Corpuscular Volume 84.4 fL (80.0-100.0); Nucleated Red Blood Cells % 0.0 %
[2025-10-01 21:21] LABS: Alanine Aminotransferase 28 U/L (7-40); Albumin 3.9 g/dL (3.2-4.8); Anion Gap 11 (5-15); BUN/Creatinine Ratio 19.4 (10.0-20.0); Blood Urea Nitrogen 12 mg/dL (9-23); Calcium 10.0 mg/dL (8.7-10.4); Carbon Dioxide 23 mmol/L (20-31); Chloride 100 mmol/L (98-107); Potassium 4.2 mmol/L (3.5-5.1); Total Protein 7.1 g/dL (5.7-8.2)
[2025-10-01 21:22] LABS: Alkaline Phosphatase 119 U/L (46-116); Bilirubin, Total 0.4 mg/dL (0.2-1.0); Glucose 201 mg/dL (74-106); Sodium 134 mmol/L (136-145)
--- NOTE | 2025-10-01 21:49 | DVH ---
Right lower extremity venous duplex Clinical History: pain / swelling Comparison: US BILAT LOW EXT ART DUPLEX on DOS: 08/16/25, US RT LOWER DVT on DOS: 08/14/25, US RIGHT LOWER EXTREMITY ULTRASOU on DOS: 08/04/25 Technique: Duplex Doppler evaluation of the deep venous system of the right lower extremity from the common femoral vein to the popliteal vein including color Doppler and spectral/pulsed waveform analysis was performed. Findings: The common femoral vein demonstrates appropriate compressibility and waveform variability. There is compressibility/patency of the great saphenous vein at the proximal thigh. The femoral vein demonstrates appropriate compressibility and waveform variability. The deep femoral vein demonstrates appropriate compressibility and waveform variability. The popliteal vein demonstrates appropriate compressibility and waveform variability. There is normal compressibility at the tibioperoneal trunk. Mildly prominent lymph node noted adjacent to the superficial femoral vein measuring 3.2 cm with no Suspect imaging features, likely reactive. Impression: No right femoropopliteal venous thrombosis.
[2025-10-01] MEDS ORDERED: MUPI2CRE17 EX (22:01)
[2025-10-01] MEDS ORDERED: CEPH250C PO (22:01)
[2025-10-01] MEDS: HYDROcodone-ACET 5/325MG TAB PO ONE (22:56)
[2025-10-01 23:03] VITALS: O2SAT 96
[2025-10-02 01:00] VITALS: RESP 24; O2SAT 95
[2025-10-02 07:30] VITALS: BP 147/61; PULSE 89; RESP 19; TEMP 97.7; O2SAT 95
== END 2025-10-02 10:49 | disposition home or self-care (01) ==
LOC: ER 17:04 → EDUNIT# 17:04 → EDBD 17:04 → ER 10-02 10:49
DX: L03.115 Cellulitis of right lower limb (principal); F17.210 Nicotine dependence, cigarettes, uncomplicated; E11.9 Type 2 diabetes mellitus without complications; Z86.718 Personal history of other venous thrombosis and embolism
CPT/HCPCS: 36415; 80053; 83605; 85025; 87040; 93971